=== PATIENT | male | born 1970 | race Caucasian/White ===

== ENCOUNTER 2020-11-06 06:21 | Outpatient (REF) | payer OTHER, SELFPAY ==
[2020-11-06 11:15] LABS: MANUAL DIFF FLAG NO
[2020-11-06 11:28] LABS: Basophils Absolute Auto 0.1 X10*3/uL (0.0-0.2); Basophils Percent Auto 0.7 % (0-2); Eosinophils Absolute Auto 0.1 X10*3/uL (0.0-0.4); Eosinophils Percent Auto 1.5 % (0-4); Hematocrit 44.8 % (42-52); Hemoglobin 15.1 g/dl (14.0-18.0); Imm Gran Abs Auto 0.04 X10*3/uL (0.00-0.03); Imm Gran Pct Auto 0.5 % (0.0-0.4); Lymphocytes Absolute Auto 1.8 X10*3/uL (1.2-4.9); Mean Corpuscular HGB Conc 33.7 g/dl (31.0-36.0); Mean Corpuscular Hemoglobin 30.5 pg (27.0-33.0); Mean Corpuscular Volume 90.5 fL (80-98); Mean Platelet Volume 9.9 fL (9.4-12.4); Monocytes Absolute Auto 0.7 X10*3/uL (0.1-1.2); Monocytes Percent Auto 8.9 % (2-11); Neutrophils Absolute Auto 4.8 X10*3/uL (2.0-8.3); Neutrophils Percent Auto 64.4 % (45-73); Platelet Count 195 X10*3/uL (160-400); Red Blood Count 4.95 X10*6/uL (4.60-5.80); Red Cell Distribution Width 12.3 % (11.0-16.0); White Blood Count 7.4 X10*3/uL (4.8-10.8)
[2020-11-06 12:12] LABS: Alanine Aminotransferase 38 U/L (0-40); Albumin Level 4.3 g/dL (3.5-5.0); Alkaline Phosphatase 92 U/L (39-117); Anion Gap 13 (12-20); Aspartate Amino Transferase 22 U/L (5-37); Bilirubin Total 0.6 mg/dL (0.0-1.0); Blood Urea Nitrogen 16 mg/dL (9-16); Calcium 8.6 mg/dL (8.4-10.2); Carbon Dioxide 27 mmol/L (22-29); Chloride 104 mmol/L (96-108); Cholesterol 116 mg/dL; Estimated Glomerular Filt Rate > 60; Glucose Fasting 97 mg/dL (60-99); HDL Cholesterol 34 mg/dL; LDL Cholesterol Calculated 64 mg/dl; Sodium 140 mmol/L (135-145); Total Protein 6.7 g/dL (6.5-8.0); Triglycerides 90 mg/dL
[2020-11-06 14:21] LABS: Prostate Specific Antigen Scr 0.23 ng/mL (<0.05-4.0)
== END 2020-11-06 06:22 | disposition home or self-care (01) ==
LOC: HO.HMGCLDS 06:21
PROVIDERS: PCP Internal Medicine; Visit Provider Internal Medicine
DX: E78.00 Pure hypercholesterolemia, unspecified (principal); I25.10 Atherosclerotic heart disease of native coronary artery without angina pectoris; I10 Essential (primary) hypertension; R35.1 Nocturia
CPT/HCPCS: 36415; 80053; 80061; 84153; 85025

== ENCOUNTER 2020-11-20 15:19 | Outpatient (REF) | payer OTHER, SELFPAY ==
--- NOTE | ~2020-11-20 | US_ITS ---
EXAMINATION: US EXTRACRANIAL CAROTID DUPLEX, BILATERAL CLINICAL INFORMATION: Right carotid bruit. Hyperlipidemia. Previous smoker. History of coronary artery disease and myocardial infarction. COMPARISON: None TECHNIQUE: Real-time ultrasound and Doppler techniques (integrating B-mode 2-D vascular images, Doppler spectral analysis and color-flow Doppler imaging) were utilized to interrogate the extracranial carotid arteries, the vertebral arteries and proximal subclavian arteries bilaterally. The degree of stenosis is determined by criteria similar to NASCET. FINDINGS: Right Side: 1. There is moderate heterogeneous atherosclerotic plaque seen in the bifurcation/proximal ICA region. 2. The common carotid artery PSV proximally is 123 cm/s and distally 87 cm/s. 3. The proximal internal carotid artery velocities are 122 cm/s systolic and 49 cm/s diastolic. 4. The proximal external carotid artery PSV is 388 cm/s. 5. The vertebral artery shows antegrade flow. 6. The subclavian artery waveforms are normal. Left Side: 1. There is moderate heterogeneous atherosclerotic plaque seen in the bifurcation/proximal ICA region. 2. The common carotid artery PSV proximally is 166 cm/s and distally 115 cm/s. 3. The proximal internal carotid artery velocities are 127 cm/s systolic and 36 cm/s diastolic. 4. The proximal external carotid artery PSV is 242 cm/s. 5. The vertebral artery shows antegrade flow. 6. The subclavian artery waveforms are normal. US/US carotid duplex BI IMPRESSION: 1. RIGHT: Minimal, non-hemodynamically significant stenosis of the proximal right internal carotid artery corresponding to a 0-49% stenosis by velocity criteria. 2. LEFT: Moderate, hemodynamically significant stenosis of the proximal left internal carotid artery corresponding to a 50-79% stenosis by velocity criteria. 3. There are hemodynamically significant stenoses of the external carotid arteries, right greater than left.
== END 2020-11-20 15:20 | disposition home or self-care (01) ==
LOC: HO.HMGCX 15:19
PROVIDERS: PCP Internal Medicine; Visit Provider Internal Medicine
DX: I25.10 Atherosclerotic heart disease of native coronary artery without angina pectoris (principal); R09.89 Other specified symptoms and signs involving the circulatory and respiratory systems
CPT/HCPCS: 93880

== ENCOUNTER 2021-07-23 06:20 | Outpatient (REF) | payer OTHER, SELFPAY ==
[2021-07-23 11:24] LABS: MANUAL DIFF FLAG NO
[2021-07-23 11:40] LABS: Basophils Percent Auto 0.7 % (0-2); Eosinophils Absolute Auto 0.1 X10*3/uL (0.0-0.4); Eosinophils Percent Auto 1.6 % (0-4); Hemoglobin 15.3 g/dl (14.0-18.0); Imm Gran Abs Auto 0.02 X10*3/uL (0.00-0.03); Imm Gran Pct Auto 0.3 % (0.0-0.4); Lymphocytes Absolute Auto 1.6 X10*3/uL (1.2-4.9); Lymphocytes Percent Auto 25.7 % (20-40); Mean Corpuscular HGB Conc 34.8 g/dl (31.0-36.0); Mean Corpuscular Hemoglobin 30.8 pg (27.0-33.0); Mean Corpuscular Volume 88.5 fL (80-98); Mean Platelet Volume 9.8 fL (9.4-12.4); Monocytes Absolute Auto 0.6 X10*3/uL (0.1-1.2); Monocytes Percent Auto 9.3 % (2-11); Neutrophils Absolute Auto 3.8 X10*3/uL (2.0-8.3); Neutrophils Percent Auto 62.4 % (45-73); Platelet Count 214 X10*3/uL (160-400); Red Blood Count 4.97 X10*6/uL (4.60-5.80); Red Cell Distribution Width 12.4 % (11.0-16.0); White Blood Count 6.2 X10*3/uL (4.8-10.8)
[2021-07-23 11:47] LABS: Alanine Aminotransferase 40 U/L (0-40); Albumin Level 4.4 g/dL (3.5-5.0); Alkaline Phosphatase 82 U/L (39-117); Anion Gap 12 (12-20); Aspartate Amino Transferase 24 U/L (5-37); Bilirubin Total 0.7 mg/dL (0.0-1.0); Blood Urea Nitrogen 13 mg/dL (9-16); Calcium 9.2 mg/dL (8.4-10.2); Carbon Dioxide 27 mmol/L (22-29); Chloride 104 mmol/L (96-108); Cholesterol 131 mg/dL; Estimated Glomerular Filt Rate > 60; Glucose Fasting 98 mg/dL (60-99); HDL Cholesterol 41 mg/dL; LDL Cholesterol Calculated 66 mg/dl; Potassium 4.1 mmol/L (3.3-5.1); Sodium 139 mmol/L (135-145); Total Protein 6.8 g/dL (6.5-8.0); Triglycerides 121 mg/dL
[2021-07-23 12:11] LABS: Prostate Specific Antigen 0.26 ng/mL (<0.05-4.0)
== END 2021-07-23 06:21 | disposition home or self-care (01) ==
LOC: HO.HMGCLDS 06:20
PROVIDERS: PCP Internal Medicine; Visit Provider Internal Medicine
DX: Z00.00 Encounter for general adult medical examination without abnormal findings (principal); E78.00 Pure hypercholesterolemia, unspecified; Z12.5 Encounter for screening for malignant neoplasm of prostate
CPT/HCPCS: 36415; 80053; 80061; 84153; 85025

== ENCOUNTER 2022-06-17 06:15 | Outpatient (REF) | payer OTHER, SELFPAY ==
[2022-06-17 11:51] LABS: MANUAL DIFF FLAG NO
[2022-06-17 12:03] LABS: Basophils Percent Auto 0.5 % (0-2); Eosinophils Absolute Auto 0.1 X10*3/uL (0.0-0.4); Eosinophils Percent Auto 2.2 % (0-4); Hematocrit 45.8 % (42.0-52.0); Hemoglobin 15.6 g/dl (14.0-18.0); Imm Gran Abs Auto 0.02 X10*3/uL (0.00-0.03); Imm Gran Pct Auto 0.4 % (0.0-0.4); Lymphocytes Absolute Auto 1.5 X10*3/uL (1.2-4.9); Lymphocytes Percent Auto 26.6 % (20-40); Mean Corpuscular HGB Conc 34.1 g/dl (31.0-36.0); Mean Corpuscular Hemoglobin 30.4 pg (27.0-33.0); Mean Corpuscular Volume 89.1 fL (80.0-98.0); Mean Platelet Volume 10.1 fL (9.4-12.4); Monocytes Absolute Auto 0.5 X10*3/uL (0.1-1.2); Monocytes Percent Auto 9.4 % (2-11); Neutrophils Absolute Auto 3.4 x10*3/uL (2.0-8.3); Neutrophils Percent Auto 60.9 % (45-73); Platelet Count 199 X10*3/uL (160-400); Red Blood Count 5.14 X10*6/uL (4.60-5.80); Red Cell Distribution Width 12.3 % (11.0-16.0); White Blood Count 5.5 X10*3/uL (4.8-10.8)
[2022-06-17 12:30] LABS: Alanine Aminotransferase 44 U/L (0-40); Albumin Level 4.7 g/dL (3.5-5.0); Alkaline Phosphatase 91 U/L (39-117); Anion Gap 13 (12-20); Aspartate Amino Transferase 29 U/L (5-37); Bilirubin Total 0.7 mg/dL (0.0-1.0); Blood Urea Nitrogen 17 mg/dL (9-16); Calcium 9.2 mg/dL (8.4-10.2); Carbon Dioxide 25 mmol/L (22-29); Chloride 104 mmol/L (96-108); Cholesterol 142 mg/dL; Estimated Glomerular Filt Rate > 60; Glucose Fasting 104 mg/dL (60-99); HDL Cholesterol 47 mg/dL; LDL Cholesterol Calculated 73 mg/dl; Potassium 4.2 mmol/L (3.3-5.1); Sodium 138 mmol/L (135-145); Total Protein 7.2 g/dL (6.5-8.0); Triglycerides 112 mg/dL
== END 2022-06-17 06:16 | disposition home or self-care (01) ==
LOC: HO.HMGCLDS 06:15
PROVIDERS: PCP Internal Medicine; Visit Provider Internal Medicine
DX: I25.10 Atherosclerotic heart disease of native coronary artery without angina pectoris (principal); I10 Essential (primary) hypertension; E78.00 Pure hypercholesterolemia, unspecified
CPT/HCPCS: 36415; 80053; 80061; 85025

== ENCOUNTER 2022-07-08 11:21 | Day surgery (SDC) | payer OTHER, SELFPAY ==
--- NOTE | 2022-07-04 13:50 | HO.ANESPROP2 ---
Documented by User: Suzan Teague NP 07/04/22 13:56 HPI - Anesthesia Eval Consult details Narrative: 51yo M for Colonoscopy Stable at yearly cardiology appointment 12/2021 ([facility] 07/2020). Per cardiology, not to stop asa perioperatively PMFSH Past Medical History Medical History (Updated 07/08/22 @ 12:17 by Laisha Jiang RN) CAD (coronary artery disease) Carotid stenosis H/O heart valve stenosis HLD (hyperlipidemia) HTN (hypertension) STEMI (ST elevation myocardial infarction) Tobacco dependence Surgical History Surgical History H/O foot surgery H/O heart artery stent H/O knee surgery Social History Social History Patient Tobacco Use Status: Former Tobacco user Cigarette Packs Per Day: 10 Are you DNR?: No Advance Directives: No Advance Directives Information Provided: Yes Nutrition Risks: No Nutritional Risk Meds Allergies Allergy/AdvReac Type Severity Reaction Status Date / Time No Known Allergies Allergy Verified 07/08/22 12:19 Home Medications Medication Instructions Recorded Confirmed Last Taken Type Aspirin Child 81 mg PO DAILY 11/19/20 07/08/22 07/08/22 History Toprol XL 50 mg PO DAILY 11/19/20 07/08/22 07/08/22 History atorvastatin 80 mg PO DAILY 11/19/20 07/08/22 11/18/20 History losartan 25 mg PO DAILY 11/19/20 07/08/22 07/07/22 History Exam Exam Date and Time: July 04, 2022 1350 Pertinent Lab Results Pertinent Lab Results: Laboratory Tests 06/17/22 06/17/22 06:23 06:23 WBC 5.5 Hgb 15.6 Hct 45.8 Plt Count 199 Sodium 138 Potassium 4.2 Chloride 104 Carbon Dioxide 25 BUN 17 H Creatinine 0.91 Narrative Narrative: EKG 10/2021 NSR @ 65 Nuc Stress 10/2021 Neg for ischemia Assessment and Plan Assessment Anesthesia Assessment: Chart Reviewed Documented by User: Leti Canales MD 07/08/22 13:01 [facility] Past Medical History Medical History (Updated 07/08/22 @ 12:17 by Laisha Jiang RN) CAD (coronary artery disease) Carotid stenosis H/O heart valve stenosis HLD (hyperlipidemia) HTN (hypertension) STEMI (ST elevation myocardial infarction) Tobacco dependence Functional capacity: independent ambulation Family History Family history of problems with anesthesia: No Surgical History Surgical History H/O foot surgery H/O heart artery stent H/O knee surgery History of Problems with Anesthesia: No Social History Social History Patient Tobacco Use Status: Former Tobacco user Cigarette Packs Per Day: 10 Are you DNR?: No Advance Directives: No Advance Directives Information Provided: Yes Nutrition Risks: No Nutritional Risk Meds Allergies Allergy/AdvReac Type Severity Reaction Status Date / Time No Known Allergies Allergy Verified 07/08/22 12:19 Home Medications Medication Instructions Recorded Confirmed Last Taken Type Aspirin Child 81 mg PO DAILY 11/19/20 07/08/22 07/08/22 History Toprol XL 50 mg PO DAILY 11/19/20 07/08/22 07/08/22 History atorvastatin 80 mg PO DAILY 11/19/20 07/08/22 11/18/20 History losartan 25 mg PO DAILY 11/19/20 07/08/22 07/07/22 History Exam Airway Mallampati Class: III TM Dist: >3cm Neck ROM: Full Heart: RRR Lungs: CTA Assessment and Plan Final Anesthetic Review Family History of Problems with Anesthesia: No History of Problems with Anesthesia: No ASA Class: II Final Preanesthetic Review: No Changes in Pt Med Stat, Meds/Allgs Chart Reviewed, Consent Obtained/Reviewed and Anes Risks/Benef Reviewed Patient Risk: Low Procedure Risk: Low Anesthetic Plan Anesthetic Plan: MAC: Disposition: Standard PACU
[2022-07-08 12:10] VITALS: BP 143/78; PULSE 78; RESP 18; TEMP 36.5; O2SAT 97; BMI 28.1
[2022-07-08] MEDS: Lactated Ringers 1,000 ML 100 ML IVCONT (12:21)
--- NOTE | 2022-07-08 13:13 | MHC.SHP ---
Pre-Procedural Eval Section A Date of Service: 07/08/22 The patient is an INPATIENT: No Changes since office visit: No Cold of Flu in the past 2 weeks, No New Medical Problems, No Changes in Medication and No Patient answered all questions The History & Physical has been completed within 30 days and I have reviewed it.: Yes Section B Chief Complaint: Other fecal abnormalities Allergies: Allergies Allergy/AdvReac Type Severity Reaction Status Date / Time No Known Allergies Allergy Verified 07/08/22 12:19 Plan I have reviewed the history and physical and performed a pertinent physical examination on my patient. No changes have occurred unless specified.
[2022-07-08 13:47] VITALS: BP 105/53; PULSE 63; RESP 16; TEMP 36.2; O2SAT 97
--- NOTE | 2022-07-08 13:47 | PM.OP ---
Brief Operative Note Date of Service: 07/08/22 Pre-op diagnosis: abnl findings in stool Post-op diagnosis: same Procedure: colonoscopy Surgeon: Olvin Hernandez Anesthesia: MAC Was an Marketing Operations Manager used for this Procedure?: No Estimated blood loss (mL): 2 Pathology: other Condition: stable Disposition: PACU
[2022-07-08 14:03] VITALS: BP 131/81; PULSE 65; RESP 18; TEMP 36.2; O2SAT 98
--- NOTE | 2022-07-09 00:26 | OP_ITS ---
SURGEON: Olvin Hernandez MD INDICATIONS: Abnormal findings in stool. PREOPERATIVE DIAGNOSIS: POSTOPERATIVE DIAGNOSIS: PROCEDURE PERFORMED: Colonoscopy to the terminal ileum with snare polypectomy and biopsy. ESTIMATED BLOOD LOSS: COMPLICATIONS: ANESTHESIA: Monitored anesthesia care. ASSISTANTS: SPECIMENS: DESCRIPTION OF PROCEDURE: The procedure was performed on 07/08/2022. History and physical performed. The risks and benefits of the procedure were explained to the patient. Informed consent was obtained. The patient was placed in the left lateral decubitus position. A digital rectal exam was performed and was found to be normal. The Olympus pediatric video colonoscope was introduced into the rectum and advanced to the cecum without difficulty. The cecum was identified by transillumination, palpation, and identification of the ileocecal valve. Examination was performed. The scope was removed. He tolerated the procedure well and was returned to recovery room in stable condition. FINDINGS: The terminal ileum was examined and appeared normal. The visualized colonic mucosa was normal. The quality of the prep was good. There was a single polyp identified and removed with a cold snare and biopsy forceps at 35 cm. No other polyps were identified. There were a few scattered diverticula seen in the sigmoid. Retroflexed examination showed some small internal hemorrhoids. IMPRESSION: Colon polyp. RECOMMENDATION: Follow up the biopsy results. MD VICTORINA Ontiveros/CARLOS A / [id number]
== END 2022-07-08 14:29 | disposition home or self-care (01) ==
PROVIDERS: PCP Internal Medicine; Visit Provider Internal Medicine Gastroenterology
PROC: 0DJD8ZZ Inspection of Lower Intestinal Tract, Via Natural or Artificial Opening Endoscopic (ICD-10-PCS; CPT 45378; principal; 2022-07-08 12:30)
DX: R19.5 Other fecal abnormalities (principal); D12.5 Benign neoplasm of sigmoid colon; K57.30 Diverticulosis of large intestine without perforation or abscess without bleeding; K64.8 Other hemorrhoids; I25.10 Atherosclerotic heart disease of native coronary artery without angina pectoris; I25.2 Old myocardial infarction; Z98.61 Coronary angioplasty status; I10 Essential (primary) hypertension; E78.00 Pure hypercholesterolemia, unspecified; Z79.82 Long term (current) use of aspirin; Z79.899 Other long term (current) drug therapy; Z87.891 Personal history of nicotine dependence
CPT/HCPCS: 45385; 45380; 88305

== ENCOUNTER 2023-06-29 06:07 | Outpatient (REF) | payer OTHER, SELFPAY ==
[2023-06-29 11:18] LABS: MANUAL DIFF FLAG NO
[2023-06-29 11:47] LABS: Basophils Percent Auto 0.8 % (0-2); Eosinophils Absolute Auto 0.1 X10*3/uL (0.0-0.4); Eosinophils Percent Auto 2.3 % (0-4); Hematocrit 44.8 % (42.0-52.0); Hemoglobin 15.5 g/dl (14.0-18.0); Imm Gran Abs Auto 0.01 X10*3/uL (0.00-0.03); Imm Gran Pct Auto 0.2 % (0.0-0.4); Lymphocytes Absolute Auto 1.4 X10*3/uL (1.2-4.9); Lymphocytes Percent Auto 26.3 % (20-40); Mean Corpuscular HGB Conc 34.6 g/dl (31.0-36.0); Mean Corpuscular Volume 89.6 fL (80.0-98.0); Mean Platelet Volume 10.2 fL (9.4-12.4); Monocytes Absolute Auto 0.5 X10*3/uL (0.1-1.2); Monocytes Percent Auto 9.6 % (2-11); Neutrophils Absolute Auto 3.2 x10*3/uL (2.0-8.3); Neutrophils Percent Auto 60.8 % (45-73); Platelet Count 176 X10*3/uL (160-400); Red Cell Distribution Width 12.5 % (11.0-16.0); White Blood Count 5.3 X10*3/uL (4.8-10.8)
[2023-06-29 12:06] LABS: Alanine Aminotransferase 47 U/L (0-40); Albumin Level 4.4 g/dL (3.5-5.0); Alkaline Phosphatase 79 U/L (39-117); Anion Gap 13 (12-20); Aspartate Amino Transferase 29 U/L (5-37); Bilirubin Total 0.8 mg/dL (0.0-1.0); Blood Urea Nitrogen 18 mg/dL (9-16); Calcium 9.6 mg/dL (8.4-10.2); Carbon Dioxide 26 mmol/L (22-29); Chloride 105 mmol/L (96-108); Cholesterol 114 mg/dL (<200); Estimated Glomerular Filt Rate > 60; Glucose Fasting 104 mg/dL (60-99); HDL Cholesterol 36 mg/dL (>40); LDL Cholesterol Calculated 55 mg/dL (<100); Potassium 4.1 mmol/L (3.3-5.1); Sodium 140 mmol/L (135-145); Total Protein 6.9 g/dL (6.5-8.0); Triglycerides 118 mg/dL (<150)
[2023-06-29 12:32] LABS: Prostate Specific Antigen 0.26 ng/mL (<0.05-4.0)
== END 2023-06-29 06:08 | disposition home or self-care (01) ==
LOC: HO.HMGCLDS 06:07
PROVIDERS: PCP Internal Medicine; Visit Provider Internal Medicine
DX: Z12.5 Encounter for screening for malignant neoplasm of prostate (principal); I25.10 Atherosclerotic heart disease of native coronary artery without angina pectoris; I10 Essential (primary) hypertension; E78.00 Pure hypercholesterolemia, unspecified; R35.1 Nocturia
CPT/HCPCS: 36415; 80053; 80061; 84153; 85025

== ENCOUNTER 2024-12-09 08:52 | Outpatient (REF) | payer OTHER, SELFPAY ==
--- OUTSIDE RECORDS SUMMARY | 2024-12-09 09:12 | XMS_ITS | Patient Health Record ---
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 Role Phone Elijah Corrales MD Primary Care Provider Hilario Holt Unavailable [phone] Allergies No Known Allergies Reason For Referral No Information Medications Medication SIG (Take, Route, Frequency, Duration) Notes Start Date End Date Status Deng Aspirin EC Low Dose 81 MG 1 tablet Orally Once a day for 30 day(s) Active Losartan Potassium 25 MG 1 tablet Orally Once a day for 30 day(s) Active Drysol 20 % as directed External ly qd hs for 30 days 10/11/2014 Not-Taking Atorvastatin Calcium 10 MG 1 tablet Orally Once a day Not-Taking Metoprolol Succinate ER 50 MG 1 tablet Orally Once a day for 30 day(s) Active Ibuprofen 800 MG 1 tablet Orally Thre e times a day for 30 day(s) 05/15/2014 Not-Taking Atorvastatin Calcium 80 MG 1 tablet Orally Once a day for 30 day(s) Active Immunizations Vaccine Route Administration Date Status Comme nts COVID-19 Moderna Vaccine Unknown 12/24/2020 Administere d 1st 11/26/2020 Social History Tobacco Use: Social History Observation Description Date Details (start date - stop date) Former Smoker NA - 09/28/1991 Tobacco Use/Smoking Question Answer Notes Are you a: former smoker When did you stop smoking? 09/28/1991 Additional Findings: Tobacco Non-User Ex-cigaret te smoker Alcohol Screen Question Answer Notes Did you have a drink contain ing alcohol in the past year? Yes How often did you have a dri nk containing alcohol in the past year? 2 to 4 times a month (2 points) Points 2 Interpretation Negative Tobacco use other than smoking: Question Answer Notes Are you an other tobacco user? No Problems Problem Type SNOMED Code ICD Code Onset Dates Problem Status W/U Status Risk Notes Problem Pain in limb (46855728) Pain in unspecified foot (M79.673) Active confirmed Plan Of Treatment Pending Test Test Name Order Date X ray : Foot, right 2V 06/05/2014 X ray : Foot, right 2V 06/15/2014 X ray : Foot, right 2V 07/06/2014 X ray : Foot, right 2V 10/11/2014 X ray : Foot, right 3V 03/17/2022 X ray : Foot, right 3V 02/22/2014 88335- Debride <25 sq cm 05/15/2014 78823- Debride <25 sq cm 10/11/2014 38206- Debride <25 sq cm 06/15/2014 87996- Debride <25 sq cm 07/06/2014 09264- Debride <25 sq cm 02/22/2014 Insurance Providers Payer Name Payer Address Payer Phone Subscriber Number Group Number Insured Name Patient Relationship to Insured Coverage Start Date Coverage End Date [facility] [id number] [place] [phone] [id number] [phone] Pamella Beasley Spouse - patient is the spouse of the insured Medical (General) History Medical History History ICD Code Back,Hip,and Knee pain Heart disease High blood pressure Poor circulation Measles Chicken pox Surgical History Surgery Date(Month/Year) right knee surgery miniscus 2012 tailors bunion right 06/01/2014 stents 07/2020 Hospitalization History Reason Date(Month/Year) [facility]-Heart Attack 3 days 2020
[2024-12-09 10:01] LABS: MANUAL DIFF FLAG NO
[2024-12-09 10:06] LABS: Basophils Percent Auto 0.8 % (0-2); Eosinophils Absolute Auto 0.2 X10*3/uL (0.0-0.4); Eosinophils Percent Auto 3.3 % (0-4); Hematocrit 45.1 % (42.0-52.0); Hemoglobin 15.7 g/dl (14.0-18.0); Imm Gran Abs Auto 0.02 X10*3/uL (0.00-0.03); Imm Gran Pct Auto 0.4 % (0.0-0.4); Lymphocytes Absolute Auto 1.4 X10*3/uL (1.2-4.9); Lymphocytes Percent Auto 28.5 % (20-40); Mean Corpuscular HGB Conc 34.8 g/dl (31.0-36.0); Mean Corpuscular Hemoglobin 30.7 pg (27.0-33.0); Mean Corpuscular Volume 88.1 fL (80.0-98.0); Mean Platelet Volume 9.8 fL (9.4-12.4); Monocytes Absolute Auto 0.4 X10*3/uL (0.1-1.2); Monocytes Percent Auto 8.8 % (2-11); Neutrophils Absolute Auto 2.8 x10*3/uL (2.0-8.3); Neutrophils Percent Auto 58.2 % (45-73); Platelet Count 172 X10*3/uL (160-400); Red Blood Count 5.12 X10*6/uL (4.60-5.80); Red Cell Distribution Width 12.1 % (11.0-16.0); White Blood Count 4.9 X10*3/uL (4.8-10.8)
[2024-12-09 10:58] LABS: Alanine Aminotransferase 47 U/L (0-40); Albumin Level 4.3 g/dL (3.5-5.0); Anion Gap 10 (12-20); Aspartate Amino Transferase 33 U/L (5-37); Bilirubin Total 0.7 mg/dL (0.0-1.0); Blood Urea Nitrogen 17 mg/dL (9-16); Calcium 9.3 mg/dL (8.4-10.2); Carbon Dioxide 27 mmol/L (22-29); Chloride 106 mmol/L (96-108); Cholesterol 117 mg/dL (<200); Estimated Glomerular Filt Rate > 60; Glucose Fasting 102 mg/dL (60-99); HDL Cholesterol 38 mg/dL (>40); LDL Cholesterol Calculated 59 mg/dL (<100); Potassium 4.3 mmol/L (3.3-5.1); Sodium 139 mmol/L (135-145); Total Protein 7.3 g/dL (6.5-8.0); Triglycerides 102 mg/dL (<150)
[2024-12-09 11:27] LABS: Alkaline Phosphatase 69 U/L (39-117)
== END 2024-12-09 08:53 | disposition home or self-care (01) ==
LOC: HO.HMGCLDS 08:52
PROVIDERS: PCP Internal Medicine; Visit Provider Internal Medicine
DX: I25.10 Atherosclerotic heart disease of native coronary artery without angina pectoris (principal); I10 Essential (primary) hypertension; E78.00 Pure hypercholesterolemia, unspecified; Z12.5 Encounter for screening for malignant neoplasm of prostate
CPT/HCPCS: 36415; 80053; 80061; 84153; 85025

== ENCOUNTER 2024-12-14 15:45 | Outpatient (AMB) | payer OTHER, SELFPAY ==
--- NOTE | 2024-12-14 15:51 | MHC.PC.OV ---
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: No Accompanied by: Self / Same As Patient Allergies No Known Allergies Allergy (Verified 12/14/24 15:51) Tobacco use date assessed: 12/14/24 Dental Screening Dental Screen Date: 12/14/24 Did you have a dental visit in the last 12 months?: Yes Did you have a dental problem in the last 6 months where you did not have access to dental care?: No PFSH Medical History (Updated 12/14/24 @ 16:20 by Bright Rodrigues MD) H/O heart valve stenosis STEMI (ST elevation myocardial infarction) Tobacco dependence HLD (hyperlipidemia) CAD (coronary artery disease) Carotid stenosis HTN (hypertension) Surgical History H/O heart artery stent H/O knee surgery H/O foot surgery Family History (Updated 12/14/24 @ 16:06 by JOHANN Simon) Mother Cancer Father High blood pressure Social History (Updated 12/14/24 @ 16:06 by JOHANN Simon) Housing: House Alcohol intake: current Alcohol intake frequency: holidays/special occasions only Patient Tobacco Use Status: Former Tobacco user Cigarette Packs Per Day: 10 service: No Current occupational status: employed Cognitive needs: No Hearing needs: No Vision needs: Yes (rx glasses) Questionnaire PHQ-9 Over the last 2 weeks, how often have you been bothered by any of the following problems? 1. Little interest or pleasure in doing things: not at all 2. Feeling down, depressed, or hopeless: not at all 3. Trouble falling or staying asleep, or sleeping too much: not at all 4. Feeling tired or having little energy: not at all 5. Poor appetite or overeating: not at all 6. Feeling bad about yourself - or that you are a failure or have let yourself or your family down: not at all 7. Trouble concentrating on things, such as reading the newspaper or watching television: not at all 8. Moving or speaking so slowly that other people could have noticed. Or the opposite - being so fidgety or restless that you have been moving around a lot more than usual: not at all 9. Thoughts that you would be better off or of hurting yourself in some way: not at all Total score: 0 Source: Developed by Drs. Noe Prather, Lin Parson, Guzman Duarte and colleagues, with an educational vik from [employer]. Thrive Questionnaire Date Thrive assessed: 12/14/24 I am a: Patient What is your living situation today?: I have a steady place to live Within the past 12 months, did the food you bought not last and you didn't have the money to get more?: Never true Within the past 12 months, did you worry whether your food would run out before you got money to buy more?: Never true Do you have trouble paying for medicines?: No Do you have trouble getting transportation to medical appointments?: No Do you have trouble paying your heating and electricity bill?: No Do you have trouble taking care of your child, family member or friend?: No Do you have trouble with day-to-day activities such as bathing, preparing meals, shopping, managing finances, etc.?: No Are you currently unemployed and looking for a job?: No Are you interested in more education?: No THRIVE Score: 0 AUDIT C Alcohol Use Questionnaire (AUDIT-C) 1. How often do you have a drink containing alcohol?: Monthly or less 2. How many drinks containing alcohol do you have on a typical day when you are drinking?: 1 or 2 3. How often do you have six or more drinks on one occasion?: Never Total Score: 1 YVONNE-7 AMB Questionnaire YVONNE-7 Date YVONNE - 7 assessed: 12/14/24 Feeling nervous, anxious, or on edge: 0 = Not at all Not being able to stop or control worryin = Not at all Worrying too much about different things: 0 = Not at all Trouble relaxin = Not at all Being so restless that it is hard to sit still: 0 = Not at all Becoming easily annoyed or irritable: 0 = Not at all Feeling afraid as if something awful might happen: 0 = Not at all Total YVONNE-7 score (0-4 normal; 5-9 mild; 10-14 moderate; 15-21 severe): 0 Source: Developed by Drs. Noe Prather, Lin Parson, Guzman Duarte and colleagues, with an educational vik from [employer]. Physical exam (Primary Care) Vital Signs: Last Vital Signs Temp 98.2 F 12/14/24 16:01 Pulse 66 12/14/24 16:01 Resp 16 12/14/24 16:01 BP 144/90 H 12/14/24 16:01 Pulse Ox 98 12/14/24 16:01 Oxygen Delivery Method Room Air 12/14/24 16:01 BMI result Body Mass Index 29.8 Tobacco/Smoking Status: Tobacco use Status Tobacco use date assessed 12/14/24 12/14/24 15:52 Patient Tobacco Use Status Former Tobacco user 12/14/24 16:06 PHQ-9: PHQ-9 Score PHQ-9: Total score 0 12/14/24 16:06 Thrive Assessment: Date of Thrive Assessment Date Thrive assessed 12/14/24 12/14/24 15:52 Coding Level of Care Code New Pt Level 4 (04288) Complex EM visit Add On G2211 Diagnoses HTN (hypertension) I10 HLD (hyperlipidemia) E78.5 Assessment & Plan Assessment & Plan (1) HTN (hypertension): Code(s): I10 - Essential (primary) hypertension Category: Medical Plan: BP in range. Continue medications at same dosage. (2) HLD (hyperlipidemia): Code(s): E78.5 - Hyperlipidemia, unspecified Category: Medical Plan: LDL at target. Continue meds at same dosage. Plan History of Present Illness The patient is a 54-year-old male presenting for a follow-up on laboratory results and medication management concerning hyperlipidemia and other chronic health conditions. He has a history of coronary artery disease with a prior myocardial infarction and attends regular cardiology appointments. His current medication regimen includes atorvastatin and ezetimibe for hyperlipidemia and metoprolol and losartan for hypertension management. Recent labs indicate a slightly elevated liver function test, possibly due to ezetimibe. He monitors his cardiovascular health closely due to carotid artery disease, with stable findings noted in annual assessments. He reports a significant improvement in health after quitting smoking. 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 The patient recalls a past colonoscopy identified a single polyp, with no further issues noted. He currently denies any pain or other significant symptoms affecting his health status. 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 - Reports general good health aside from everyday aches and pains expected with age Review of Systems - Cardiovascular: Reports history of myocardial infarction, monitored by cardiology Physical Exam General: Cooperative and healthy appearing Nutritional Appearance: Well nourished Orientation/consciousness: Patient oriented x3 Limitations: No limitations Head: Normal to inspection General: Appearance normal, both eyes and all related structures Neck: Normal visual inspection Chest: Normal palpation of entire chest wall Respiratory: Normal respiratory effort Neurology: Patient oriented x3 Results - Labs: Slightly elevated liver function test Plan The recent liver function test indicates slight elevation, likely related to ezetimibe, so we will continue monitoring these levels closely. The patient's current regimen for hyperlipidemia with atorvastatin and blood pressure medications of metoprolol and losartan show effective management, and no changes are needed presently. The patient is advised to continue regular follow-ups with cardiology for stable management of coronary artery disease and carotid artery health, which will also be reassessed routinely. Instructed to maintain his current medication and health management strategies, ensuring avoidance of smoking and maintaining a healthy lifestyle. No immediate medication refills are required. Patient was informed and verbally consented to the use of an ambient scribe for clinic note documentation during this visit. Discussion Notes I discussed with the patient his laboratory results, which included slightly elevated liver function tests, potentially an effect of taking ezetimibe. We agreed on the importance of continuous monitoring, considering no immediate harmful implications. I reinforced the success of his current medication regimen for hyperlipidemia and hypertension, with stable cardiovascular health. The patient was informed about the importance of regular cardiology follow-ups and carotid artery assessments to ensure sustained management of his coronary artery disease. We discussed his successful cessation of smoking and emphasized maintaining this lifestyle change. Patient Instructions - Continue taking atorvastatin and ezetimibe as prescribed for hyperlipidemia - Maintain current blood pressure medications: metoprolol and losartan - Schedule regular cardiology follow-ups and annual carotid artery evaluations - Avoid smoking and maintain a healthy lifestyle - Contact the pharmacy or office for any prescription refills or needs
[2024-12-14 16:01] VITALS: BP 144/90; PULSE 66; RESP 16; TEMP 36.8; O2SAT 98; BMI 29.8
--- OUTSIDE RECORDS SUMMARY | 2024-12-14 17:40 | XMS_ITS | Patient Health Record ---
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 Role Phone Elijah Corrales MD Primary Care Provider Hilario Holt Unavailable [phone] Allergies No Known Allergies Reason For Referral [...] Status Risk Notes Problem Pain in limb (14425034) Pain in unspecified foot (M79.673) Active confirmed Plan Of Treatment Pending Test Test Name Order Date X ray : Foot, right 2V 06/05/2014 X ray : Foot, right 2V 06/15/2014 X ray : Foot, right 2V 07/06/2014 X ray : Foot, right 2V 10/11/2014 X ray : Foot, right 3V 03/17/2022 X ray : Foot, right 3V 02/22/2014 41049- Debride <25 sq cm 05/15/2014 32458- Debride <25 sq cm 10/11/2014 30239- Debride <25 sq cm 06/15/2014 44990- Debride <25 sq cm 07/06/2014 54683- Debride <25 sq cm 02/22/2014 Insurance Providers Payer Name Payer Address Payer Phone Subscriber Number Group Number Insured Name Patient Relationship to Insured Coverage Start Date Coverage End Date [facility] [id number] [place] [phone] [id number] [phone] Pamella Beasley Spouse - patient is the spouse of the insured Medical (General) History Medical History History ICD Code Back,Hip,and Knee pain Heart disease High blood pressure Poor circulation Measles Chicken pox Surgical History Surgery Date(Month/Year) right knee surgery miniscus 2012 tailors bunion right 06/01/2014 stents 07/2020 Hospitalization History Reason Date(Month/Year) [facility]Heart Attack 3 days 2020
== END 2024-12-14 16:18 | disposition home or self-care (01) ==
LOC: HO.HMCHD 15:46
PROVIDERS: PCP Internal Medicine; Visit Provider Internal Medicine
DX: I10 Essential (primary) hypertension (principal); E78.5 Hyperlipidemia, unspecified

== ENCOUNTER 2025-06-21 16:07 | Outpatient (AMB) | payer OTHER, SELFPAY ==
[2025-06-21 16:12] VITALS: BP 136/82; PULSE 57; TEMP 36.5; O2SAT 97; BMI 30.7
--- NOTE | 2025-06-21 16:12 | MHC.PC.OV ---
Vital Signs 06/21/25 16:12 Height 5 ft 7 in Weight 196 lb BMI 30.7 BP 136/82 Blood Pressure Location Lt brachial Position Sitting Pulse 57 Pulse Source Pulse Oximeter Temp 97.7 F Temp Source Temporal Artery Scan Pulse Oximetry (%) 97 Oxygen Delivery Method Room Air Intake Visit Reasons: Routine Security System Administrator Required: No Accompanied by: Self / Same As Patient Allergies No Known Allergies Allergy (Verified 06/21/25 16:12) Medication List - Last Reconciled 06/26/25 by OSWALD Birch [Aspirin Child 81 mg PO DAILY] [atorvastatin 80 mg PO DAILY] ezetimibe 10 mg PO BEDTIME [losartan 25 mg PO DAILY] [Toprol XL 50 mg PO DAILY] Tobacco use date assessed: 06/21/25 Dental Screening Dental Screen Date: 06/21/25 Did you have a dental visit in the last 12 months?: Yes Did you have a dental problem in the last 6 months where you did not have access to dental care?: No HPI HPI Comments History of Present Illness Details The patient is a 54-year-old male with HTN, HLD, CAD, carotid stenosis and former smoker presenting to [facility]. The patient experienced a myocardial infarction five years ago, which required the placement of three stents. He has been on a regimen of atorvastatin, Zetia, metoprolol, losartan, and aspirin since the event. He quit smoking five years ago, coinciding with the myocardial infarction. The patient has carotid artery stenosis and undergoes annual ultrasounds to monitor the condition. He also receives testing on his lower extremities to check for blood clots. The patient reports symptoms of ulnar neuropathy, particularly numbness in the lower fingers after prolonged motorcycle rides. He associates these symptoms with clutching the motorcycle for extended periods. An EMG study has been recommended to assess the nerve conduction and identify the problem's origin. The patient has a history of hyperlipidemia and hypertension, managed with medication. His cholesterol levels have improved significantly with the addition of Zetia. He experiences occasional heartburn, typically triggered by certain foods like spaghetti sauce. He denies any other gastrointestinal symptoms. The patient had a colonoscopy in 2021, with a follow-up recommended in 2031. Patient was informed and verbally consented to the use of an ambient scribe for clinic note documentation during this visit. [facility] Medical History (Updated 06/26/25 @ 02:29 by OSWALD Birch) CAD (coronary artery disease) Carotid stenosis H/O heart valve stenosis HLD (hyperlipidemia) HTN (hypertension) Medication management Numbness of left hand Obesity (BMI 30.0-34.9) STEMI (ST elevation myocardial infarction) Tobacco dependence Surgical History H/O foot surgery H/O heart artery stent H/O knee surgery History of colonoscopy (~07/09/22) Family History Mother Cancer Father High blood pressure Social History Housing: House Alcohol intake: current Alcohol intake frequency: holidays/special occasions only Patient Tobacco Use Status: Former Tobacco user Cigarette Packs Per Day: 10 e-Cigarette/Vaping Use: Former Use service: No Current occupational status: employed Cognitive needs: No Hearing needs: No Vision needs: Yes (rx glasses) Questionnaire PHQ-9 Over the last 2 weeks, how often have you been bothered by any of the following problems? 1. Little interest or pleasure in doing things: not at all 2. Feeling down, depressed, or hopeless: not at all 3. Trouble falling or staying asleep, or sleeping too much: not at all 4. Feeling tired or having little energy: not at all 5. Poor appetite or overeating: not at all 6. Feeling bad about yourself - or that you are a failure or have let yourself or your family down: not at all 7. Trouble concentrating on things, such as reading the newspaper or watching television: not at all 8. Moving or speaking so slowly that other people could have noticed. Or the opposite - being so fidgety or restless that you have been moving around a lot more than usual: not at all 9. Thoughts that you would be better off or of hurting yourself in some way: not at all Total score: 0 Depression Screening Interpretation: Negative Depression Screening Done: Yes Source: Developed by Drs. Noe Prather, Lin Parson, Guzman Duarte and colleagues, with an educational vik from [employer]. Thrive Questionnaire Date Thrive assessed: 06/21/25 I am a: Patient Within the past 12 months, did the food you bought not last and you didn't have the money to get more?: Never true Within the past 12 months, did you worry whether your food would run out before you got money to buy more?: Never true Do you have trouble paying for medicines?: No Do you have trouble getting transportation to medical appointments?: No Do you have trouble paying your heating and electricity bill?: No Do you have trouble taking care of your child, family member or friend?: No Do you have trouble with day-to-day activities such as bathing, preparing meals, shopping, managing finances, etc.?: No Are you currently unemployed and looking for a job?: No Are you interested in more education?: No THRIVE Score: 0 AUDIT C Alcohol Use Questionnaire (AUDIT-C) 1. How often do you have a drink containing alcohol?: Monthly or less 2. How many drinks containing alcohol do you have on a typical day when you are drinking?: 1 or 2 3. How often do you have six or more drinks on one occasion?: Less than monthly Total Score: 2 YVONNE-7 AMB Questionnaire YVONNE-7 Date YVONNE - 7 assessed: 06/21/25 Feeling nervous, anxious, or on edge: 0 = Not at all Not being able to stop or control worryin = Not at all Worrying too much about different things: 0 = Not at all Trouble relaxin = Not at all Being so restless that it is hard to sit still: 0 = Not at all Becoming easily annoyed or irritable: 0 = Not at all Feeling afraid as if something awful might happen: 0 = Not at all Total YVONNE-7 score (0-4 normal; 5-9 mild; 10-14 moderate; 15-21 severe): 0 Source: Developed by Drs. Noe Prather, Lin Parson, Guzman Duarte and colleagues, with an educational vik from [employer]. Review of Systems Const Details: CONSTITUTIONAL Negative HEAD/NECK Negative EAR/NOSE/MOUTH/THROAT Negative RESPIRATORY Negative CARDIOVASCULAR Denies chest pain, dyspnea, or palpitations GASTROINTESTINAL Reports occasional heartburn, denies constipation or diarrhea MUSCULOSKELETAL Negative NEUROLOGICAL Reports numbness in lower fingers after prolonged motorcycle rides PSYCHIATRIC Negative Physical exam (Primary Care) Vital Signs: Last Vital Signs Temp 97.7 F 06/21/25 16:12 Pulse 57 06/21/25 16:12 BP 136/82 06/21/25 16:12 Pulse Ox 97 06/21/25 16:12 Oxygen Delivery Method Room Air 06/21/25 16:12 BMI result Body Mass Index 30.7 GENERAL Well developed, obese, in no apparent distress HEENT Head-Normocephalic Eyes- PERRLA, EOMI, Conjuctiva clear, lids WNL Ears- Canals clear, TMs WNL Mouth/Throat-No lesions, no erythema, no exudate Neck- Supple, No lymphadenopathy, thyroid WNL RESPIRATORY Normal I:E, Clear to auscultation CARDIOVASCULAR Regular, rate and rhythm, No murmurs or rubs GASTROINTESTINAL Soft, nontender, normal bowel sounds, no masses MUSCULOSKELETAL Back- nontender Joints- no pain swelling or deformity NEUROLOGICAL Gait normal PSYCHIATRIC Oriented to person, place and time Mood and affect WNL Appearance WNL Speech WNL Thought processes WNL Tobacco/Smoking Status: Tobacco use Status Tobacco use date assessed 06/21/25 06/21/25 16:13 Patient Tobacco Use Status Former Tobacco user 06/21/25 16:13 e-Cigarette/Vaping Use Former Use 06/21/25 16:18 PHQ-9: PHQ-9 Score PHQ-9: Total score 0 06/21/25 16:23 Depression Screening Interpretation: Negative Thrive Assessment: Date of Thrive Assessment Date Thrive assessed 06/21/25 06/21/25 16:13 Results Reviewed Results Reviewed: - Labs: Blood work in November showed no abnormalities Coding Level of Care Code Established Pt Est Pt Level 4 (48385) Patient Type Established Diagnoses Primary hypertension I10 Hypertension type: primary hypertension Pure hypercholesterolemia E78.00 Hyperlipidemia type: pure hypercholesterolemia Numbness of left hand R20.0 Obesity (BMI 30.0-34.9) E66.811 Coronary artery disease involving [place] coronary artery of [place] heart without angina pectoris I25.10 Coronary Disease-Associated Artery/Lesion type: [place] artery [place] vs. transplanted heart: [place] heart Associated angina: without angina Bilateral carotid artery stenosis I65.23 Laterality: bilateral Time Spent (min) 30 Comment Time spent on chart review, medication reconciliation, H&P, patient education, orders Assessment & Plan Assessment & Plan (1) HTN (hypertension): Comment: BP today was 136/82 Code(s): I10 - Essential (primary) hypertension Category: Medical Qualifiers: Hypertension type: primary hypertension Qualified Code(s): I10 - Essential (primary) hypertension Plan: The patient is managed with metoprolol and losartan, with regular monitoring of blood pressure. Patient will continue current medications. Will monitor. Patient will follow up in 8 weeks. (2) HLD (hyperlipidemia): Code(s): E78.5 - Hyperlipidemia, unspecified Category: Medical Qualifiers: Hyperlipidemia type: pure hypercholesterolemia Qualified Code(s): E78.00 - Pure hypercholesterolemia, unspecified Plan: The patient is on atorvastatin and Zetia, with significant improvement in cholesterol levels. (3) Numbness of left hand: Code(s): R20.0 - Anesthesia of skin Category: Medical Plan: An EMG study is planned to assess the nerve conduction and identify the source of the neuropathy. Follow-up will be scheduled to discuss the results and potential interventions. Patient to follow up in 8 weeks or sooner if symptoms persist or worsen. (4) Obesity (BMI 30.0-34.9): Comment: BMI today was 30.7 Code(s): E66.811 - Obesity, class 1 Category: Medical Plan: Discussed the health risks of obesity with the patient. Reviewed benefits of even moderate weight loss with the patient. Patient will gradually try and increase exercise to 30-40 min 5-7 times per week. We discussed the patient adding more fruits and vegetables to their diet. Will monitor weight and follow up in 2 months. (5) CAD (coronary artery disease): Code(s): I25.10 - Atherosclerotic heart disease of [place] coronary artery without angina pectoris Category: Medical Qualifiers: Coronary Disease-Associated Artery/Lesion type: [place] artery [place] vs. transplanted heart: [place] heart Associated angina: without angina Qualified Code(s): I25.10 - Atherosclerotic heart disease of [place] coronary artery without angina pectoris Plan: Patient to continue to follow up with Cardiology (6) Carotid stenosis: Comment: moderate, bilateral Code(s): I65.29 - Occlusion and stenosis of unspecified carotid artery Category: Medical Qualifiers: Laterality: bilateral Qualified Code(s): I65.23 - Occlusion and stenosis of bilateral carotid arteries Plan: Patient to follow up with Vascular Plan I discussed with the patient the importance of regular follow-up for cardiovascular health and the need for an EMG study to evaluate the ulnar neuropathy. We reviewed the current medication regimen and its effectiveness in managing hyperlipidemia and hypertension. The patient was advised on dietary modifications to manage occasional heartburn. Orders: Orders Complete Blood Count no Diff 06/21/25 I10 - Essential (primary) hypertension, Z79.899 - Other terminal supervisor (current) drug therapy Lipid Panel 06/21/25 E78.5 - Hyperlipidemia, unspecified NE electromyogram (EMG) 06/21/25 R20.0 - Anesthesia of skin Comprehensive Met. Panel 06/21/25 I10 - Essential (primary) hypertension, Z79.899 - Other jail (current) drug therapy TSH reflex Free T4 06/21/25 I10 - Essential (primary) hypertension Patient Instructions: - Continue current medications as prescribed. - Schedule and complete the EMG study as discussed. - Follow up in 8 weeks for review of EMG results and further management. - Maintain a heart-healthy diet and avoid foods that trigger heartburn.
--- OUTSIDE RECORDS SUMMARY | 2025-06-21 18:04 | XMS_ITS | Clinical Summary ---
Author Organization [facility] Index [facility] Address [address] [place] [address] Phone Care Team Providers Care Administrative Asst Name Role Phone Elijah Corrales MD Primary Care Provider Allergies No known active allergies Medications cetirizine (ZyrTEC) 10 mg tablet Take 1 tablet (10 mg total) by mouth 1 (one) time each day. Active ezetimibe (ZETIA) 10 mg tablet Take 1 tablet (10 mg total) by mouth 1 (one) time each day. Active aspirin 81 mg chewable tablet Chew 1 tablet (81 mg total) 1 (one) time each day. Active atorvastatin (LIPITOR) 80 mg tabletIndication s:Coronary artery disease involving [place] coronary artery of [place] heart without angina pectoris Take 1 tablet (80 mg total) by mouth 1 (one) time each day. 90 tablet 3 02/17/2025 Active losartan (COZAAR) 25 mg tabletIndication s:Coronary artery disease involving [place] coronary artery of [place] heart without angina pectoris Take 1 tablet (25 mg total) by mouth 1 (one) time each day. 90 tablet 3 02/17/2025 Active metoprolol succinate (TOPROL-XL) 50 mg 24 hr tabletIndication s:Coronary artery disease involving [place] coronary artery of [place] heart without angina pectoris Take 1 tablet (50 mg total) by mouth 1 (one) time each day. 90 tablet 3 02/17/2025 Active Active Problems Problem Noted Date Diagnosed Date Chest pain 12/11/2021 Hypertension 12/11/2021 Assessment & Plan (02/17/2025 8:56 AM EDT): Continue with losartan and metoprolol. Orders: ECG 12 lead Bilateral carotid artery stenosis 06/14/2021 Overview (02/17/2025): June 2023 - bilateral carotid ultrasound showing 1-49% bilaterally of ICAs, left ICA is at the upper end of the range Assessment & Plan (02/17/2025 8:56 AM EDT): No neurologic symptoms. Continue with aspirin, atorvastatin, ezetimibe, losartan and metoprolol. We discussed risk reduction through lifestyle choices including healthy diet, routine exercise and weight management. Coronary artery disease invo lving [place] coronary artery of [place] heart without angina pectoris 06/14/2021 Overview (02/17/2025): July 2020 - presented with left arm numbness and jaw and chest pain found to have an inferior STEMI with diagnostic angiogram showed demonstrated a mid RCA 90% stenosis as well as a 75% proximal RCA lesion, 70% mid LAD lesion and 75% OM1 lesion status post PCI to the right coronary artery with three sequential overlapping drug-eluting stents November 2020 - Treadmill Nuclear stress test IMPRESSION: 1. Probably normal. Probably normal exercise nuclear stress test. 2. Patient achieved 66% of the Max predicted heart rate due to beta-promise use 3. The patient exercised for 6 minutes and 38 seconds. Average functional capacity for age and gender 4. No chest pain during the exercise protocol 5. No ischemic ECG changes with exercise 6. Myocardial perfusion imaging revealed no areas of ischemia or infarction after attenuation correction was applied. 7. TID was normal (0.81). Right ventricular function was normal (visual estimation). 8. Gated images revealed normal LV wall motion and thickening; with a normal LV systolic function (LVEF 81%). Electronically Signed By: Peterson Reddy 02/11/2021 8:26 PM Assessment & Plan (02/17/2025 8:56 AM EDT): Catheterization from 2019 during inferior STEMI showed mid RCA 90% stenosis as well as a 75% proximal RCA lesion, 70% mid LAD lesion and 75% OM1 lesion status post three JUAN RAMON to the RCA. Last Nuclear stress test in November 2020 showed no ischemia. Echocardiogram showed preserved LV systolic function LVEF 60-65%. No anginal symptoms. Continue with aspirin, atorvastatin, ezetimibe, losartan and metoprolol. We discussed risk reduction through lifestyle choices including healthy diet, routine exercise and weight management. Orders: ECG 12 lead atorvastatin (LIPITOR) 80 mg tablet; Take 1 tablet (80 mg total) by mouth 1 (one) time each day. losartan (COZAAR) 25 mg tablet; Take 1 tablet (25 mg total) by mouth 1 (one) time each day. metoprolol succinate (TOPROL-XL) 50 mg 24 hr tablet; Take 1 tablet (50 mg total) by mouth 1 (one) time each day. Hyperlipidemia 12/12/2020 Assessment & Plan (02/17/2025 8:56 AM EDT): Continue with atorvastatin and ezetimibe. ST elevation myocardial infa rction (STEMI) of inferior wall (CMS/HCC V24, CMS/HCC V28) 09/04/2020 Overview (02/17/2025): Cath, 3 overlapping stents to RCA on 08/07/20 @ [facility] Surgical History Surgery Date Site/Laterality Comments KNEE ARTHROSCOPY Right PROCEDURE: CT ARTHROSCOPY KNEE DIAGNOSTIC W/WO SYNOVIAL BX SPX FOOT SURGERY Right PROCEDURE: HISTORICAL FOOT SURGERY Family History Medical History Relation Name Comments Coronary artery disease Maternal Grandmother Other cancer Mother Relation Name Status Comments Maternal Grandmother Mother Social History Tobacco Use Types Packs/Day Years Used Date Smoking Tobacco: Former Cigarettes Q uit: 08/07/2020 Smokeless Tobacco: Never Alcohol Use Standard Drinks/Week Comments Yes 0 (1 standard drink = 0.6 oz pur e alcohol) occ Sex and Gender Information Value Date Recorded Sex Assigned at Not on file Legal Sex Male 11:46 AM EST Gender Identity Not on file Sexual Orientation Not on file Obstetrics History Last Filed Vital Signs Vital Sign Reading Time Taken Comments Blood Pressure 120/82 02/17/2025 8:00 AM EDT Pulse 58 02/17/2025 8:00 AM EDT Temperature - - Respiratory Rate - - Oxygen Saturation 93% 02/17/2025 8:00 AM EDT Inhaled Oxygen Concentration - - Weight 89 kg (196 lb 3.2 oz) 02/17/2025 8:00 AM EDT Height 170.2 cm (5' 7 ) 02/17/2025 8:00 AM EDT Body Mass Index 30.73 02/17/2025 8:00 AM EDT Plan of Treatment Health Maintenance Due Date Last Done Comments DTaP,Tdap,and Td Vaccines (1 - Tdap) 1988 Hepatitis B Vaccines (1 of 3 - 19+ 3-dose series) 1988 Pneumococcal Vaccine: 50+ Years (1 of 1 - PCV) 2019 Zoster Vaccines (1 of 2) 2019 Cholesterol Screening (Lipid Panel) 09/06/2022 Colorectal Cancer Screening: Colonoscopy 09/06/2022 HIV Screening 09/06/2022 Hepatitis C Screening 09/06/2022 Social Influencers of Health Screening 09/06/2022 Hypertension/CHF/CAD Annual BMP Blood Test 09/07/2022 Depression Screening 09/28/2024 COVID-19 Vaccine (4 - 2024-2 6 season) 2025 02/20/2021, 01/21/2021, 12/24/2020 Influenza Vaccine (#1) 2025 08/08/2020 HIB Vaccines Aged Out No longer eligi ble based on patient's age to complete this topic HPV Vaccines Aged Out No longer eligi ble based on patient's age to complete this topic Hepatitis A Vaccines Aged Out No long er eligible based on patient's age to complete this topic IPV Vaccines Aged Out No longer eligi ble based on patient's age to complete this topic MMR Vaccines Aged Out No longer eligi ble based on patient's age to complete this topic Meningococcal ACWY Vaccine Aged Out N o longer eligible based on patient's age to complete this topic Meningococcal B Vaccine Aged Out No l onger eligible based on patient's age to complete this topic RSV Immunization Patients Under 20 months Aged Out No longer eligible b ased on patient's age to complete this topic Varicella Vaccines Aged Out No longer eligible based on patient's age to complete this topic Insurance [employer] Care Teams Administrative Asst Relationship Specialty Start Date End Date Elijah Corrales MD [address] [place] [address] Dr Tonya [place] PCP - General Internal Medicine 09/04/20
--- OUTSIDE RECORDS SUMMARY | 2025-06-21 18:04 | XMS_ITS | Patient Health Record ---
Author Organization [facility] Address [address] [place] [address] Care Team Providers Care Silk Conditioner Name Role Phone Elijah Corrales MD Primary Care Provider Hilario Holt Unavailable [phone] Allergies No Known Allergies Reason For Referral No Information Medications Medication SIG (Take, Route, Frequency, Duration) Notes Start Date End Date Status Deng Aspirin EC Low Dose 81 MG 1 tablet Orally Once a day; Duration: 30 day(s) Active Losartan Potassium 25 MG 1 tablet Orally Once a day; Duration: 30 day(s) Active Drysol 20 % as directed External ly qd hs; Duration: 30 days 10/11/2014 Not-Taking Atorvastatin Calcium 10 MG 1 tablet Orally Once a day Not-Taking Metoprolol Succinate ER 50 MG 1 tablet Orally Once a day; Duration: 30 day(s) Active Ibuprofen 800 MG 1 tablet Orally Thre e times a day; Duration: 30 day(s) 05/15/2014 Not-Taking Atorvastatin Calcium 80 MG 1 tablet Orally Once a day; Duration: 30 day(s) Active Immunizations Vaccine Route Administration Date Status Comme nts COVID-19 Moderna Vaccine Unknown 12/24/2020 Administere d 11/26/2020 Social History Tobacco Use: Social History [...] Status Risk Notes Problem Pain in limb (60567732) Pain in unspecified foot (M79.673) Active confirmed Plan Of Treatment Pending Test Test Name Order Date X ray : Foot, right 2V 06/05/2014 X ray : Foot, right 2V 06/15/2014 X ray : Foot, right 2V 07/06/2014 X ray : Foot, right 2V 10/11/2014 X ray : Foot, right 3V 03/17/2022 X ray : Foot, right 3V 02/22/2014 99622- Debride <25 sq cm 05/15/2014 55032- Debride <25 sq cm 10/11/2014 15805- Debride <25 sq cm 06/15/2014 42828- Debride <25 sq cm 07/06/2014 65156- Debride <25 sq cm 02/22/2014 Insurance Providers Payer Name Payer Address Payer Phone Subscriber Number Group Number Insured Name Patient Relationship to Insured Coverage Start Date Coverage End Date [address] [place] [phone] [id number] Pamella Beasley Spouse - patient is the spouse of the insured Medical (General) History Medical History History ICD Code Back,Hip,and Knee pain Heart disease High blood pressure Poor circulation Measles Chicken pox Surgical History Surgery Date(Month/Year) right knee surgery miniscus 2012 tailors bunion right 06/01/2014 stents 07/2020 Hospitalization History Reason Date([place] [facility] 3 days 2020
== END 2025-06-21 16:40 | disposition home or self-care (01) ==
LOC: HO.HMCHD 16:07
PROVIDERS: PCP Internal Medicine; Visit Provider Physician Assistant Medical
DX: I25.10 Atherosclerotic heart disease of native coronary artery without angina pectoris (principal); R20.0 Anesthesia of skin; Z68.30 Body mass index [BMI] 30.0-30.9, adult; E66.811 Obesity, class 1; I65.23 Occlusion and stenosis of bilateral carotid arteries; I10 Essential (primary) hypertension; E78.00 Pure hypercholesterolemia, unspecified

== ENCOUNTER 2025-08-18 07:17 | Outpatient (REF) | payer OTHER, SELFPAY ==
--- OUTSIDE RECORDS SUMMARY | 2025-08-18 07:21 | XMS_ITS | Clinical Summary ---
Author Organization [facility] [employer] [facility] Address [address] [place] [address] Phone Care Team Providers Care Repairer Finished Metal Name Role Phone Elijah Corrales MD Primary Care Provider [phone] Allergies No known active allergies Medications cetirizine [...] 80 mg tabletIndication s:Coronary artery disease involving northern cheyenne coronary artery of northern che[place] heart without angina pectoris Take 1 tablet (80 mg total) by mouth 1 (one) time each day. 90 tablet 3 02/17/2025 Active losartan (COZAAR) 25 mg tabletIndication s:Coronary artery disease involving northern che[place] coronary artery of northern che[place] heart without angina pectoris Take 1 tablet (25 mg total) by mouth 1 (one) time each day. 90 tablet 3 02/17/2025 Active metoprolol succinate (TOPROL-XL) 50 mg 24 hr tabletIndication s:Coronary artery disease involving northern che[place] coronary artery of northern [place] heart without angina pectoris Take 1 tablet [...] weight management. Coronary artery disease invo lving northern cheyenne coronary artery of northern che[place] heart without angina pectoris 06/14/2021 Overview (02/17/2025): [...] Date Site/Laterality Comments KNEE ARTHROSCOPY Right PROCEDURE: [place] ARTHROSCOPY KNEE DIAGNOSTIC W/WO SYNOVIAL BX SPX FOOT SURGERY Right PROCEDURE: HISTORICAL FOOT SURGERY Family History Medical History Relation Name Comments Coronary artery disease Maternal Grandmother Other cancer Mother Relation Name Status Comments Maternal Grandmother Mother Social History Tobacco Use Types Packs/Day Years Used Date Smoking Tobacco: Former Cigarettes 0.5 Q uit: 08/07/2020 Smokeless Tobacco: Never Alcohol [...] Health Maintenance Due Date Last Done Comments Colorectal Cancer Screening: Colonoscopy 1969 DTaP,Tdap,and Td Vaccines (1 - Tdap) 1988 Hepatitis B Vaccines (1 of 3 - 19+ 3-dose series) 1988 Pneumococcal Vaccine: 50+ Years (1 of 1 - PCV) 2019 Zoster Vaccines (1 of 2) 2019 Cholesterol Screening (Lipid Panel) 09/06/2022 HIV Screening 09/06/2022 Hepatitis C Screening 09/06/2022 Social Influencers of Health Screening 09/06/2022 Hypertension/CHF/CAD Annual BMP Blood Test 09/07/2022 Depression Screening 09/28/2024 COVID-19 Vaccine (4 - 2024-2 6 season) 2025 02/20/2021, 01/21/2021, 12/24/2020 RSV Immunization Adult Patients (1 - 1-dose 75+ series) 2044 Influenza Vaccine Completed 06/21/2025, 08/08/2020 HIB Vaccines Aged Out No longer [...] complete this topic Insurance [employer] Care Teams Repairer Finished Metal Relationship Specialty Start Date End Date Elijah Corrales MD [address] [place] [address] Dr Tonya [place] PCP - General Internal Medicine 09/04/20
--- OUTSIDE RECORDS SUMMARY | 2025-08-18 07:21 | XMS_ITS | Patient Health Record ---
Author Organization [facility] Address [address] [place] [address] Care Team Providers Care Yarn Conditioner Name Role Phone Elijah Corrales MD Primary Care Provider Unavaila Hilario Myers Unavailable [phone] Allergies No Known Allergies Reason For Referral [...] Status Risk Notes Problem Pain in limb (26781103) Pain in unspecified foot (M79.673) Active confirmed Plan Of Treatment Pending Test Test Name Order Date X ray : Foot, right 2V 06/05/2014 X ray : Foot, right 2V 06/15/2014 X ray : Foot, right 2V 07/06/2014 X ray : Foot, right 2V 10/11/2014 X ray : Foot, right 3V 03/17/2022 X ray : Foot, right 3V 02/22/2014 29931- Debride <25 sq cm 05/15/2014 46684- Debride <25 sq cm 10/11/2014 78084- Debride <25 sq cm 06/15/2014 79422- Debride <25 sq cm 07/06/2014 44406- Debride <25 sq cm 02/22/2014 Insurance Providers Payer Name Payer Address Payer Phone Subscriber Number Group Number Insured Name Patient Relationship to Insured Coverage Start Date Coverage End Date Aena [facility] [id number] [place] [address] 6 [id number] [phone] Pamella Beasley Spouse - patient is the spouse of the insured Medical (General) History Medical History History ICD Code Back,Hip,and Knee pain Heart disease High blood pressure Poor circulation Measles Chicken pox Surgical History Surgery Date(Month/Year) right knee surgery miniscus 2012 tailors bunion right 06/01/2014 stents 07/2020 Hospitalization History Reason Date(Month/Year) [facility]-Heart Attack 3 days 2020
[2025-08-18 10:18] LABS: Hematocrit 46.0 % (42.0-52.0); Hemoglobin 15.5 g/dl (14.0-18.0); Mean Corpuscular HGB Conc 33.7 g/dl (31.0-36.0); Mean Corpuscular Hemoglobin 30.4 pg (27.0-33.0); Mean Corpuscular Volume 90.2 fL (80.0-98.0); NRBC Abs Auto 0.000 X10*3/uL (0.0-0.012); NRBC Pct Auto 0.0 /100WBC (0.0-0.2); Platelet Count 180 X10*3/uL (160-400); Red Blood Count 5.10 X10*6/uL (4.60-5.80); White Blood Count 5.4 X10*3/uL (4.8-10.8)
[2025-08-18 10:58] LABS: Alanine Aminotransferase 54 U/L (0-40); Albumin Level 4.5 g/dL (3.5-5.0); Alkaline Phosphatase 68 U/L (39-117); Anion Gap 11 (12-20); Aspartate Amino Transferase 39 U/L (5-37); Blood Urea Nitrogen 15 mg/dL (9-16); Calcium 9.1 mg/dL (8.4-10.2); Carbon Dioxide 29 mmol/L (22-29); Chloride 106 mmol/L (96-108); Cholesterol 115 mg/dL (<200); Estimated Glomerular Filt Rate > 60; HDL Cholesterol 37 mg/dL (>40); Potassium 4.5 mmol/L (3.3-5.1); Sodium 141 mmol/L (135-145); Total Protein 6.9 g/dL (6.5-8.0); Triglycerides 94 mg/dL (<150)
== END 2025-08-18 07:18 | disposition home or self-care (01) ==
LOC: HO.HMGCLDS 07:17
PROVIDERS: PCP Physician Assistant Medical; Visit Provider Physician Assistant Medical
DX: I10 Essential (primary) hypertension (principal); E78.5 Hyperlipidemia, unspecified; Z79.899 Other long term (current) drug therapy
CPT/HCPCS: 36415; 80053; 80061; 84443; 85027

== ENCOUNTER 2025-08-22 16:07 | Outpatient (AMB) | payer OTHER, SELFPAY ==
--- NOTE | 2025-08-22 16:23 | A.OFFPC_ITS ---
Vital Signs 08/22/25 16:24 Height 5 ft 7 in Weight 196 lb 8 oz BMI 30.8 BP 132/84 Blood Pressure Location Lt brachial Position Sitting Respiration 16 Pulse 76 Pulse Source Pulse Oximeter Temp 97.3 F Temp Source Temporal Artery Scan Pulse Oximetry (%) 97 Oxygen Delivery Method Room Air Intake Visit Reasons: 8 weeks follow up Lead Case Manager Required: No Accompanied by: Self / Same As Patient Allergies No Known Allergies Allergy (Verified 08/22/25 16:23) Medication List - Last Reconciled 09/12/25 by OSWALD Birch [Aspirin Child 81 mg PO DAILY] atorvastatin 80 mg PO DAILY cyclobenzaprine 10 mg PO BEDTIME PRN ezetimibe 10 mg PO BEDTIME losartan 25 mg PO DAILY metoprolol succinate ER 50 mg PO DAILY Tobacco use date assessed: 06/21/25 Dental Screening Dental Screen Date: 06/21/25 HPI HPI Comments History of Present Illness Details History of Present Illness The patient is a 54 year old male with HTN, HLD, CAD, carotid stenosis, obesity and former smoker presenting for follow-up and management of chronic conditions. Patient is on Losartan and Metoprolol. His BP today was 132/84 The patient has a history of a myocardial infarction five years ago, at which time plaque buildup was noted, and the patient had stents placed. The patient has a history of carotid plaque and underwent ultrasounds of the carotids and lower extremities two weeks ago. The ultrasound revealed a new area of concern in the lower right carotid artery, just before the bifurcation, and a CAT scan is scheduled for the 5th. The lower extremity study showed no significant changes. Recent lab work was reviewed, showing a normal blood count, kidney function, and blood sugar. Liver function tests were slightly elevated, which has been a stable finding from the previous year and is attributed to fatty liver. Cholesterol was 115, LDL was 60, and HDL was slightly low at 37. The patient is a former smoker who quit a few years ago after the heart attack. The patient reports trying to adhere to a diet low in cholesterol, sodium, and sugar and is physically active, splitting firewood. Relevant past screenings include a positive Cologuard test, which led to a co lonoscopy where one benign polyp was removed. The patient also reports numbness and tingling in the lower extremities, which is thought to be neurological, and has a nerve study scheduled. The patient's father had heart disease, which was not disclosed, and from sepsis after a colon surgery for a nonmalignant issue. Medical History: - Myocardial infarction 5 years ago, sta tus post coronary artery stent placement - Carotid artery stenosis with plaque - Hyperlipidemia - History of benign colon polyp - Mildly elevated liver function tests, suspected secondary to hepatic steatosis - Peripheral neuropathy - History of tobacco use, quit a few yea rs ago Surgical History: - Coronary artery stent placement - Colonoscopy with polypectomy Family History: - Father had heart disease, likely inclu ding a myocardial infarction, which was not disclosed to the family. - Father from septic complic ations following a non-malignant colon surgery. - Strong history of heart disease on the paternal side, with all of the father's siblings being affected. - Both parents were smokers. Health Maintenance A follow-up visit is scheduled in six months. The patient was reminded of the need for a repeat colonoscopy in five years due to the prior finding of a polyp. The patient has adequate refills on current medications for the time being. Social History - Tobacco Use: The patient is a former s moker who started in the patient's early 20s and quit a few years ago after a myocardial infarction. - Past unsuccessful quit attempts involv ed using a patch and Zyban. - Diet: The patient makes an effort to e at a diet low in cholesterol, sodium, and sugar, and reads food labels. - Exercise: The patient is physically ac tive and engages in activities such as splitting firewood. Results - Labs: - Blood count: Normal red cells, white c ells, and platelets. - Liver function: Slightly elevated, sta ble from last year. - Kidney function: Normal. - Sugar: Normal. - Thyroid: Normal. - Lipid panel: Total cholesterol 115, LD L 60, HDL 37. - Imaging/Tests: - Carotid Ultrasound (2 weeks ago): Show ed known plaque and a new area of concern in the lower right carotid artery. - Lower Extremity Arterial Study (2 week s ago): Findings were unremarkable with no significant changes. - Cologuard test (past): Positive. - Colonoscopy (past): Revealed one benig n polyp which was removed. Patient was informed and verbally consented to the use of an ambient scribe for clinic note documentation during this visit. [facility] Medical History (Updated 09/12/25 @ 07:27 by OSWALD Birch) CAD (coronary artery disease) Carotid stenosis H/O heart valve stenosis HLD (hyperlipidemia) HTN (hypertension) Joint pain Medication management Numbness of left hand Obesity (BMI 30.0-34.9) STEMI (ST elevation myocardial infarction) Tobacco dependence Surgical History H/O foot surgery H/O heart artery stent H/O knee surgery History of colonoscopy (~07/09/22) Family History Mother Cancer Father High blood pressure Social History Housing: House Alcohol intake: current Alcohol intake frequency: holidays/special occasions only Patient Tobacco Use Status: Former Tobacco user Cigarette Packs Per Day: 10 e-Cigarette/Vaping Use: Former Use service: No Current occupational status: employed Cognitive needs: No Hearing needs: No Vision needs: Yes (rx glasses) Questionnaire Thrive Questionnaire Date Thrive assessed: 06/21/25 AUDIT C Alcohol Use Questionnaire (AUDIT-C) 2. How many drinks containing alcohol do you have on a typical day when you are drinking?: 1 or 2 3. How often do you have six or more drinks on one occasion?: Less than monthly Total Score: 1 YVONNE-7 AMB Questionnaire YVONNE-7 Date YVONNE - 7 assessed: 06/21/25 Source: Developed by Drs. Noe Prather, Lin Parson, Guzman Duarte and colleagues, with an educational vik from [employer]. Review of Systems Narrative Review of Systems - General: Denies feeling tired or generally different. - Neurological: Denies dizziness, lightheadedness, changes in vision, or numbness/tingling in the head. - Reports numbness and tingling in the lower extremities. - Musculoskeletal: Reports leg soreness and tiredness after physical activity, which is attributed to exertion. Physical exam (Primary Care) Vital Signs: Last Vital Signs Temp 97.3 F 08/22/25 16:24 Pulse 76 08/22/25 16:24 Resp 16 08/22/25 16:24 BP 132/84 08/22/25 16:24 Pulse Ox 97 08/22/25 16:24 Oxygen Delivery Method Room Air 08/22/25 16:24 BMI result Body Mass Index 30.8 GENERAL Well developed, obese, in no apparent distress HEENT Head-Normocephalic Eyes- PERRLA, EOMI, Conjuctiva clear, lids WNL Ears- Canals clear, TMs WNL Mouth/Throat-No lesions, no erythema, no exudate Neck- Supple, No lymphadenopathy, thyroid WNL RESPIRATORY Normal I:E, Clear to auscultation CARDIOVASCULAR Regular, rate and rhythm, No murmurs or rubs GASTROINTESTINAL Soft, nontender, normal bowel sounds, no masses MUSCULOSKELETAL Back- nontender Joints- no pain swelling or deformity NEUROLOGICAL Gait normal PSYCHIATRIC Oriented to person, place and time Mood and affect WNL Appearance WNL Speech WNL Thought processes WNL Tobacco/Smoking Status: Tobacco use Status Tobacco use date assessed 06/21/25 08/22/25 16:28 Patient Tobacco Use Status Former Tobacco user 08/22/25 16:28 e-Cigarette/Vaping Use Former Use 08/22/25 16:28 Thrive Assessment: Date of Thrive Assessment Date Thrive assessed 06/21/25 08/22/25 16:28 Narrative Physical Exam Coding Level of Care Code Established Pt Est Pt Level 4 (41726) Patient Type Established Diagnoses Primary hypertension I10 Hypertension type: primary hypertension Bilateral carotid artery stenosis I65.23 Laterality: bilateral Pure hypercholesterolemia E78.00 Hyperlipidemia type: pure hypercholesterolemia Obesity (BMI 30.0-34.9) E66.811 Numbness of left hand R20.0 Time Spent (min) 30 Comment Time was spent on chart review, H&P, Patient education and follow up Assessment & Plan Assessment & Plan (1) HTN (hypertension): Comment: BP today was 132/84 Code(s): I10 - Essential (primary) hypertension Category: Medical Qualifiers: Hypertension type: primary hypertension Qualified Code(s): I10 - Essential (primary) hypertension Plan: Controlled. Patient will continue current medications. Will monitor. Patient will follow up in 6 months (2) Carotid stenosis: Comment: moderate, bilateral Code(s): I65.29 - Occlusion and stenosis of unspecified carotid artery Category: Medical Qualifiers: Laterality: bilateral Qualified Code(s): I65.23 - Occlusion and stenosis of bilateral carotid arteries Plan: Patient to follow up with Vascular (3) HLD (hyperlipidemia): Code(s): E78.5 - Hyperlipidemia, unspecified Category: Medical Qualifiers: Hyperlipidemia type: pure hypercholesterolemia Qualified Code(s): E78.00 - Pure hypercholesterolemia, unspecified Plan: Controlled. Patient will continue current medications. Will monitor. Patient will follow up in 6 months (4) Obesity (BMI 30.0-34.9): Comment: BMI today was 30.8 Code(s): E66.811 - Obesity, class 1 Category: Medical Plan: Patient has maintained the same weight. Diet and exercise were reviewed. (5) Numbness of left hand: Code(s): R20.0 - Anesthesia of skin Category: Medical Plan: Patient is scheduled for EMG Plan Plan Patient was informed and verbally consented to the use of an ambient scribe for clinic note documentation during this visit. 1. Carotid Artery Stenosis A recent ultrasound revealed a new concerning spot of plaque in the right carotid artery. The patient is scheduled for a CT scan on the for further evaluation. A copy of the recent lab work will be sent to the patient's vascular specialist, Lynsey Eric at [facility]. The patient was advised to follow up after the scan to discuss the results and potential management plan, which may include stenting, and to keep both primary care and cardiology informed. 2. Hyperlipidemia Recent lab results show good control with a total cholesterol of 115 and LDL of 60. The HDL is slightly low at 37. It was discussed that exercise is the most effective way to raise HDL levels. The patient will continue with dietary management. 3. History Of Myocardial Infarction The patient is stable five years after a myocardial infarction. The patient needs to schedule a follow-up appointment with [facility] and was advised to update them on the findings from the upcoming vascular evaluation. 4. Peripheral Neuropathy The patient reports ongoing numbness and tingling in the lower extremities. An EMG/nerve study is scheduled for tomorrow to investigate these symptoms further. Discussion Notes I reviewed the recent lab results with the patient, which were generally favorable. I noted the slightly elevated liver function was stable and not clinically concerning, and while the LDL cholesterol was excellent at 60, the HDL was slightly low at 37. I explained that exercise is the primary method to improve HDL levels. We discussed the recent carotid ultrasound that found a new area of concern. I acknowledged the patient's plan to have a CT scan and follow up with the vascular specialist. I advised the patient on stroke-like symptoms to monitor for, including dizziness, lightheadedness, and vision changes. I agreed to have my medical secretary send a copy of the patient's lab results to the vascular specialist, Lynsey Eric, to ensure care coordination. I recommended the patient keep me and the train control electronic technician informed about the vascular plan once it is established. We scheduled a follow-up appointment in six months to review progress and any interval developments. Patient Instructions - Go to your scheduled nerve study tomorrow. - Proceed with the CAT scan of your neck scheduled for the . - We will send a copy of your recent blood work to your vascular specialist, Lynsey Eric. - After you know the plan from your vascular team, please call our office and your train control electronic technician's office to let us know what is going on. - Schedule an appointment with your heart doctor at [facility]. - Continue your efforts with diet and exercise, as exercise is the best way to help raise your good cholesterol (HDL). - Call us if you develop any new symptoms such as dizziness, lightheadedness, changes in your vision, or numbness in your head. - We have scheduled a follow-up visit for you here in six months. Orders: Referrals Rheumatology Referral M25.50 - Pain in unspecified joint
[2025-08-22 16:24] VITALS: BP 132/84; PULSE 76; RESP 16; TEMP 36.3; O2SAT 97; BMI 30.8
--- OUTSIDE RECORDS SUMMARY | 2025-08-22 19:26 | XMS_ITS | Clinical Summary ---
Author Organization [facility] [employer] [facility] Address [address] [place] [place] [address] Phone Care Team Providers Care Repairer Name Role Phone Elijah Corrales MD Primary [...] 80 mg tabletIndication s:Coronary artery disease involving quechan coronary artery of quechan heart without angina pectoris Take 1 tablet (80 mg total) by mouth 1 (one) time each day. 90 tablet 3 02/17/2025 Active losartan (COZAAR) 25 mg tabletIndication s:Coronary artery disease involving quechan coronary artery of quechan heart without angina pectoris Take 1 tablet (25 mg total) by mouth 1 (one) time each day. 90 tablet 3 02/17/2025 Active metoprolol succinate (TOPROL-XL) 50 mg 24 hr tabletIndication s:Coronary artery disease involving quechan coronary artery of quechan heart without angina pectoris Take 1 tablet [...] weight management. Coronary artery disease invo lving quechan coronary artery of quechan heart without angina pectoris 06/14/2021 Overview (02/17/2025): [...] Date Site/Laterality Comments KNEE ARTHROSCOPY Right PROCEDURE: [place] ARTHROSCOPY KNEE DIAGNOSTIC W/WO SYNOVIAL BX SPX [...] this topic Insurance [employer] Care Teams Repairer Relationship Specialty Start Date End Date Elijah Corrales MD [address] [place] [address] Dr Tonya [place] PCP - General Internal Medicine 09/04/20
--- OUTSIDE RECORDS SUMMARY | 2025-08-22 19:26 | XMS_ITS | Patient Health Record ---
Author Organization [facility] Address [address] [place] [address] Care Team Providers Care Burrer Marker Axle Name Role Phone Elijah Corrales MD Primary Care Provider Unavaila Hilario Myesr Unavailable [phone] Allergies No Known Allergies Reason For Referral [...] Status Risk Notes Problem Pain in limb (18800414) Pain in unspecified foot (M79.673) Active confirmed Plan Of Treatment Pending Test Test Name Order Date X ray : Foot, right 2V 06/05/2014 X ray : Foot, right 2V 06/15/2014 X ray : Foot, right 2V 07/06/2014 X ray : Foot, right 2V 10/11/2014 X ray : Foot, right 3V 03/17/2022 X ray : Foot, right 3V 02/22/2014 37936- Debride <25 sq cm 05/15/2014 48992- Debride <25 sq cm 10/11/2014 51370- Debride <25 sq cm 06/15/2014 21627- Debride <25 sq cm 07/06/2014 12262- Debride <25 sq cm 02/22/2014 Insurance Providers Payer Name Payer Address Payer Phone Subscriber Number Group Number Insured Name Patient Relationship to Insured Coverage Start Date Coverage End Date Aena [facility] [address] [place] [address] [id number] Pamella Beasley Spouse - patient is the spouse of the insured Medical (General) History Medical History History ICD Code Back,Hip,and Knee pain Heart disease High blood pressure Poor circulation Measles Chicken pox Surgical History Surgery Date(Month/Year) right knee surgery miniscus 2012 tailors bunion right 06/01/2014 stents 07/2020 Hospitalization History Reason Date(Month/Year) [facility]-Heart Attack 3 days 2020
== END 2025-08-22 16:53 | disposition home or self-care (01) ==
LOC: HO.HMCHD 16:08
PROVIDERS: PCP Physician Assistant Medical; Visit Provider Physician Assistant Medical
DX: I10 Essential (primary) hypertension (principal); I65.23 Occlusion and stenosis of bilateral carotid arteries; E78.00 Pure hypercholesterolemia, unspecified; E66.811 Obesity, class 1; R20.0 Anesthesia of skin

== ENCOUNTER 2025-08-23 08:46 | Outpatient (REF) | payer OTHER, SELFPAY ==
--- NOTE | 2025-08-23 09:00 | EMG_ITS ---
Chief complaint: Numbness in fourth and fifth digits left hand Referred by:?Emma AKERS Procedure done: Left upper extremity NCS/EMG Left median and ulnar motor studies were performed with F responses. Left median and ulnar mixed sensory and 2nd and 5th digit ortho sensory studies were performed. Left median and lateral antecubital brachial and radial sensory studies were performed. Needle examination was performed. Findings: Median study did not reveal any significant abnormality. Ulnar motor amplitude slightly diminished across elbow with similar slight slowing of conduction velocity. Sensory studies did not reveal any significant abnormality. Needle examination did not reveal any convincing abnormality. Impression: Mild left ulnar nerve slowing across elbow. Codin [id number] 1 extremity MTDD
--- OUTSIDE RECORDS SUMMARY | 2025-08-23 09:09 | XMS_ITS | Patient Health Record ---
Author Organization [facility] Address [address] [place] [address] Care Team Providers Care Medical Legal Investigator Name Role Phone Elijah Corrales MD Primary Care Provider Unavaila Hilario Myers Unavailable [phone] Allergies No Known Allergies Reason For Referral [...] Status Risk Notes Problem Pain in limb (96757241) Pain in unspecified foot (M79.673) Active confirmed Plan Of Treatment Pending Test Test Name Order Date X ray : Foot, right 2V 06/05/2014 X ray : Foot, right 2V 06/15/2014 X ray : Foot, right 2V 07/06/2014 X ray : Foot, right 2V 10/11/2014 X ray : Foot, right 3V 03/17/2022 X ray : Foot, right 3V 02/22/2014 99970- Debride <25 sq cm 05/15/2014 16347- Debride <25 sq cm 10/11/2014 96009- Debride <25 sq cm 06/15/2014 89568- Debride <25 sq cm 07/06/2014 96002- Debride <25 sq cm 02/22/2014 Insurance Providers Payer Name Payer Address Payer Phone Subscriber Number Group Number Insured Name Patient Relationship to Insured Coverage Start Date Coverage End Date Aena [facility] [id number] [place] [address] [id number] [phone] Pamella Beasley Spouse - patient is the spouse of the insured Medical (General) History Medical History History ICD Code Back,Hip,and Knee pain Heart disease High blood pressure Poor circulation Measles Chicken pox Surgical History Surgery Date(Month/Year) right knee surgery miniscus 2012 tailors bunion right 06/01/2014 stents 07/2020 Hospitalization History Reason Date(Month/Year) [facility]-Heart Attack 3 days 2020
--- OUTSIDE RECORDS SUMMARY | 2025-08-23 09:09 | XMS_ITS | Clinical Summary ---
Author Organization [facility] [employer] [facility] Address [address] [place] [address] Phone Care Team Providers Care Insole Doubler Name Role Phone Elijah Corrales MD Primary Care Provider [phone] Allergies No known active allergies Medications cetirizine [...] 80 mg tabletIndication s:Coronary artery disease involving sitka coronary artery of sitka heart without angina pectoris Take 1 tablet (80 mg total) by mouth 1 (one) time each day. 90 tablet 3 02/17/2025 Active losartan (COZAAR) 25 mg tabletIndication s:Coronary artery disease involving sitka coronary artery of sitka heart without angina pectoris Take 1 tablet (25 mg total) by mouth 1 (one) time each day. 90 tablet 3 02/17/2025 Active metoprolol succinate (TOPROL-XL) 50 mg 24 hr tabletIndication s:Coronary artery disease involving sitka coronary artery of sitka heart without angina pectoris Take 1 tablet [...] weight management. Coronary artery disease invo lving sitka coronary artery of sitka heart without angina pectoris 06/14/2021 Overview (02/17/2025): [...] Date Site/Laterality Comments KNEE ARTHROSCOPY Right PROCEDURE: [place] ARTHROSCOPY KNEE DIAGNOSTIC W/WO SYNOVIAL BX SPX [...] complete this topic Insurance AET[employer] Care Teams Insole Doubler Relationship Specialty Start Date End Date Elijah Corrales MD [address] [place] [address] Dr Tonya [place] PCP - General Internal Medicine 09/04/20
== END 2025-08-23 08:47 | disposition home or self-care (01) ==
LOC: HO.NEURO 08:46
PROVIDERS: PCP Physician Assistant Medical; Visit Provider Physician Assistant Medical
DX: R20.0 Anesthesia of skin (principal)
CPT/HCPCS: 95886; 95911

== ENCOUNTER → 2025-08-23 09:00 | Outpatient (BNV) | payer OTHER, SELFPAY | PROVIDERS: PCP Physician Assistant Medical; Visit Provider Psychiatry & Neurology Neurology | DX: R20.0 Anesthesia of skin (principal) | CPT/HCPCS: 95886; 95911 ==

== ENCOUNTER 2025-09-26 13:11 | Outpatient (AMB) | payer OTHER, SELFPAY ==
[2025-09-26 13:24] VITALS: BP 128/76; PULSE 76; TEMP 36.9; O2SAT 97; BMI 29.8
--- NOTE | 2025-09-26 13:24 | A.OFFPC_ITS ---
Vital Signs 09/26/25 13:24 Height 5 ft 7 in Weight 190 lb BMI 29.8 BP 128/76 Blood Pressure Location Lt brachial Position Sitting Pulse 76 Pulse Source Pulse Oximeter Temp 98.5 F Temp Source Temporal Artery Scan Pulse Oximetry (%) 97 Oxygen Delivery Method Room Air Intake Visit Reasons: ? 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 Accompanied by: Self / Same As Patient Allergies No Known Allergies Allergy (Verified 10/04/25 09:17) Medication List - Last Reconciled 10/31/25 by OSWALD Birch [Aspirin Child 81 mg PO DAILY] atorvastatin 80 mg PO DAILY cyclobenzaprine 10 mg PO BEDTIME PRN diclofenac sodium 1% (Voltaren Arthritis Pain) 2 grams topical QID ezetimibe 10 mg PO BEDTIME fluticasone propionate 50 mcg/actuation (Flonase Allergy Relief) 2 sprays intranasal DAILY losartan 25 mg PO DAILY metoprolol succinate ER 50 mg PO DAILY Tobacco use date assessed: 09/26/25 Dental Screening Dental Screen Date: 09/26/25 Did you have a dental visit in the last 12 months?: Yes Did you have a dental problem in the last 6 months where you did not have access to dental care?: No HPI HPI Comments History of Present Illness Details History of Present Illness The patient is a 54 year old male with HTN, HLD, CAD, carotid stenosis, obesity and former smoker presenting with symptoms of a common cold and for a discussion of recent test results. He began feeling unwell on Thursday afternoon with the onset of significant nasal stuffiness. Symptoms worsened, and he experienced a sensation of pressure behind his eyes. He reports a low-grade fever of 99.3 F. A cough is present, which he attributes to postnasal drip, but denies any major coughing spells. He denies ear pain, ear pressure, or body aches. He has been taking Mucinex and another [id number] liquid cold medicine suitable for individuals with high blood pressure, which he feels helps to break up secretions. His symptoms improved after sleeping with an open window, exposing him to cold air. Approximately one month ago, the patient underwent a nerve conduction study for evaluation of pain and numbness. Following the test, he was scheduled for an appointment with a set off press operator. Recent pre-procedure blood work revealed elevated inflammatory markers, specifically the sedimentation rate and C- reactive protein. The nerve conduction study itself was normal. Medical History: - Hypertension, implied by use of medica tion safe for high blood pressure. - Elevated inflammatory markers (sedimen tation rate and CRP). - History of pain and numbness, under in vestigation. Medications: - Mucinex for cold symptoms. - Unspecified daytime/nighttime liquid c old medicine safe for hypertension. Social History - The patient reports dry air in his efren e. Results - Labs: Recent blood work shows an eleva simeon sedimentation rate (ESR) and C- reactive protein (CRP). - Tests and Diagnostics: EMG/nerve condu ction study performed approximately one month ago was normal. Patient was informed and verbally consented to the use of an ambient scribe for clinic note documentation during this visit. [facility] Medical History Joint pain Obesity (BMI 30.0-34.9) Numbness of left hand Medication management H/O heart valve stenosis STEMI (ST elevation myocardial infarction) Tobacco dependence HLD (hyperlipidemia) CAD (coronary artery disease) Carotid stenosis HTN (hypertension) Surgical History History of colonoscopy (~07/09/22) H/O heart artery stent H/O knee surgery H/O foot surgery Family History Mother Cancer Father High blood pressure Social History Housing: House Alcohol intake: current Alcohol intake frequency: holidays/special occasions only Patient Tobacco Use Status: Former Tobacco user Cigarette Packs Per Day: 10 e-Cigarette/Vaping Use: Former Use service: No Current occupational status: employed Cognitive needs: No Hearing needs: No Vision needs: Yes (rx glasses) Questionnaire PHQ-9 Over the last 2 weeks, how often have you been bothered by any of the following problems? 1. Little interest or pleasure in doing things: not at all 2. Feeling down, depressed, or hopeless: not at all 3. Trouble falling or staying asleep, or sleeping too much: not at all 4. Feeling tired or having little energy: not at all 5. Poor appetite or overeating: not at all 6. Feeling bad about yourself - or that you are a failure or have let yourself or your family down: not at all 7. Trouble concentrating on things, such as reading the newspaper or watching television: not at all 8. Moving or speaking so slowly that other people could have noticed. Or the opposite - being so fidgety or restless that you have been moving around a lot more than usual: not at all 9. Thoughts that you would be better off or of hurting yourself in some way: not at all Total score: 0 Depression Screening Interpretation: Negative Depression Screening Done: Yes Source: Developed by Drs. Noe Prather, Lin Parson, Guzman Duarte and colleagues, with an educational vik from [employer]. Thrive Questionnaire Date Thrive assessed: 06/21/25 YVONNE-7 AMB Questionnaire YVONNE-7 Date YVONNE - 7 assessed: 06/21/25 Source: Developed by Drs. Noe Prather, Lin Parson, Guzman Duarte and colleagues, with an educational vik from [employer]. Review of Systems Narrative Review of Systems - General: Reports a low-grade fever of 99.3. - Denies body aches or pains. - HEENT: Reports severe nasal congestion and sinus pressure behind the eyes. - Denies ear pain or pressure. - Respiratory: Reports a cough secondary to postnasal drip. - Neurological: Reports a history of pain and numbness. Physical exam (Primary Care) Vital Signs: Last Vital Signs Temp 98.5 F 09/26/25 13:24 Pulse 76 09/26/25 13:24 BP 128/76 09/26/25 13:24 Pulse Ox 97 09/26/25 13:24 Oxygen Delivery Method Room Air 09/26/25 13:24 BMI result Body Mass Index 29.8 GENERAL Well developed, Well nourished, in no apparent distress HEENT Head-Normocephalic Ears- Canals clear, TMs WNL Mouth/Throat-No lesions, no erythema, no exudate Nasal- congested Neck- Supple, No lymphadenopathy, thyroid WNL RESPIRATORY Normal I:E, Clear to auscultation CARDIOVASCULAR Regular, rate and rhythm, No murmurs or rubs NEUROLOGICAL Gait normal PSYCHIATRIC Oriented to person, place and time Mood and affect WNL Appearance WNL Speech WNL Thought processes WNL Tobacco/Smoking Status: Tobacco use Status Tobacco use date assessed 09/26/25 09/26/25 13:29 Patient Tobacco Use Status Former Tobacco user 09/26/25 13:29 e-Cigarette/Vaping Use Former Use 09/26/25 13:29 PHQ-9: PHQ-9 Score PHQ-9: Total score 0 09/26/25 13:29 Depression Screening Interpretation: Negative Thrive Assessment: Date of Thrive Assessment Date Thrive assessed 06/21/25 09/26/25 13:29 Narrative Physical Exam - HEENT: Oropharynx is mildly erythematous. - Sinuses are non-tender to palpation. - Lungs: Auscultation is clear. Coding Level of Care Code Established Pt Est Pt Level 3 (63790) Established Pt Add On Problem Visit Only Patient Type Established Diagnoses Viral upper respiratory tract infection J06.9 URI type: unspecified viral URI Time Spent (min) 25 Comment Irma spent on chart review, H&P, Patient education and orders. Assessment & Plan Assessment & Plan (1) URI (upper respiratory infection): Code(s): J06.9 - Acute upper respiratory infection, unspecified Qualifiers: URI type: unspecified viral URI Qualified Code(s): J06.9 - Acute upper respiratory infection, unspecified Plan: Will give Flonase for congestion. Patient to increase fluids. Patient to follow up as needed if symptoms persist or worsen. Plan Plan Patient was informed and verbally consented to the use of an ambient scribe for clinic note documentation during this visit. 1. Common Cold The patient's current symptoms of nasal congestion, postnasal drip, and low- grade fever are consistent with a viral upper respiratory infection. Management will be focused on symptomatic relief. A prescription for Flonase nasal spray was sent to the pharmacy to help reduce sinus inflammation and pressure. The patient was advised he can continue taking [id number] Mucinex, as he feels it is helping. Supportive care measures, including increased fluid intake, rest, and using a humidifier or steam, were recommended. The patient was instructed to call back if his symptoms do not improve after a few days. 2. Elevated Inflammatory Markers The patient was notified that his recent blood work showed elevated inflammatory markers, specifically a sed rate and CRP. His recent EMG/nerve conduction study was normal, ruling out a primary nerve issue as the cause of his pain and numbness. It was explained that the elevation in inflammatory markers prompted the referral to rheumatology to investigate an underlying inflammatory condition, such as a form of arthritis or connective tissue disease. He is to follow up with the set off press operator as scheduled. Discussion Notes I explained to the patient that his symptoms are consistent with a common cold, which is caused by a virus and requires symptomatic treatment. I prescribed Flonase nasal spray to help with the sinus inflammation and pressure, and I provided instructions on its proper use to maximize efficacy. We discussed supportive measures such as using a humidifier or steam, and I advised him to continue Mucinex if it provides relief. I instructed him to call back if his symptoms do not improve in a few days. I also addressed his questions regarding his recent rheumatology referral. I explained that the rheumatology consultation is to investigate the source of this inflammation and its connection to his symptoms of pain and numbness. I informed him that his nerve conduction study was normal, but his lab work showed elevated inflammatory markers (sed rate and CRP). Patient Instructions - Your symptoms are from a common cold, which is caused by a virus and will get better on its own. - I have sent a prescription for Flonase nasal spray to your pharmacy. - When using it, look at your toes, spray toward the top of your head, and try not to sniff it down your throat. - You can continue to take Mucinex if it is helping your symptoms. - Get plenty of rest and drink lots of fluids. - Using a humidifier or sitting in a steamy bathroom can help with your congestion. - Please call us if you are not feeling better in a few days. - Your recent nerve test was normal. - Your blood work showed signs of inflammation, which is why we sent you to a set off press operator (joint specialist) to find out the cause. Medications: New fluticasone propionate 50 mcg/actuation (Flonase Allergy Relief) administer into each nostril 2 sprays intranasal DAILY 16 grams 0RF
--- OUTSIDE RECORDS SUMMARY | 2025-09-26 17:06 | XMS_ITS | Patient Health Record ---
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 Name Role Phone Elijah Corrales MD Primary Care Provider Unavaila Hilario Myers Unavailable [phone] Allergies No Known Allergies Reason For Referral [...] Status Risk Notes Problem Pain in limb (42617298) Pain in unspecified foot (M79.673) Active confirmed Plan Of Treatment Pending Test Test Name Order Date X ray : Foot, right 2V 06/05/2014 X ray : Foot, right 2V 06/15/2014 X ray : Foot, right 2V 07/06/2014 X ray : Foot, right 2V 10/11/2014 X ray : Foot, right 3V 03/17/2022 X ray : Foot, right 3V 02/22/2014 24737- Debride <25 sq cm 05/15/2014 03703- Debride <25 sq cm 10/11/2014 79506- Debride <25 sq cm 06/15/2014 09907- Debride <25 sq cm 07/06/2014 95960- Debride <25 sq cm 02/22/2014 Insurance Providers Payer Name Payer Address Payer Phone Subscriber Number Group Number Insured Name Patient Relationship to Insured Coverage Start Date Coverage End Date [facility] [id number] [place] [phone] [id number] Pamella Beasley Spouse - patient is the spouse of the insured Medical (General) History Medical History History ICD Code Back,Hip,and Knee pain Heart disease High blood pressure Poor circulation Measles Chicken pox Surgical History Surgery Date(Month/Year) right knee surgery miniscus 2012 tailors bunion right 06/01/2014 stents 07/2020 Hospitalization History Reason Date(Month/Year) [facility]-Heart Attack 3 days 2020
--- OUTSIDE RECORDS SUMMARY | 2025-09-26 17:06 | XMS_ITS | Clinical Summary ---
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 90 tablet 3 02/17/2025 Active losartan (COZAAR) 25 mg tabletIndication s:Coronary artery disease involving citizen [place] coronary artery of citizen [place] heart without angina pectoris Take 1 tablet (25 mg total) by mouth 1 (one) time each day. 90 tablet 3 02/17/2025 Active metoprolol succinate (TOPROL-XL) 50 mg 24 hr tabletIndication s:Coronary artery disease involving citizen [place] coronary artery of citizen [place] heart without angina pectoris Take 1 tablet [...] weight management. Coronary artery disease invo lving citizen [place] coronary artery of citizen [place] heart without angina pectoris 06/14/2021 Overview (02/17/2025): [...] with atorvastatin and ezetimibe. ST elevation myocardial infarction (STEMI) of in ferior wall 09/04/2020 Overview (02/17/2025): Cath, 3 overlapping stents to RCA on 08/07/20 @ [facility] Surgical History Surgery Date Site/Laterality Comments KNEE ARTHROSCOPY Right PROCEDURE: [place] ARTHROSCOPY KNEE DIAGNOSTIC W/WO SYNOVIAL BX SPX [...] on file Sexual Orientation Not on file Last Filed Vital Signs Vital Sign Reading [...] complete this topic Insurance [employer] Care Teams Piano And Organ Refinisher Relationship Specialty Start Date End Date Elijah Corrales MD [address] [place] [address] Dr Tonya [place] PCP - General Internal Medicine 09/04/20
== END 2025-09-26 13:58 | disposition home or self-care (01) ==
LOC: HO.HMCHD 13:12
PROVIDERS: PCP Physician Assistant Medical; Visit Provider Physician Assistant Medical
DX: J06.9 Acute upper respiratory infection, unspecified (principal)